=== PATIENT | male | born 1940 | race Caucasian/White ===

== ENCOUNTER 2018-01-22 12:59 | Inpatient (IN) | payer MEDICARE ==
[2018-01-22 14:08] VITALS: BP 162/80
[2018-01-22] MEDS ORDERED: Maalox 30 mL Cup PO PRN (14:17)
[2018-01-22] MEDS ORDERED: Magnesium Hydroxide (MOM) 30 mL UDC PO PRN (14:17)
[2018-01-22 15:30] LABS: % BASOPHILS 2.2 % (0.0-2.0); % EOSINOPHILS 1.6 % (0.0-5.0); % LYMPHOCYTES 28.2 % (20.0-50.0); % MONOCYTES 10.1 % (2.0-10.0); % NEUTROPHILS 57.9 % (40.0-80.0); BASOPHILE ABSOLUTE 0.2 Th/cumm (0-0.2); EOSINOPHILE ABSOLUTE 0.2 Th/cmm (0.1-0.4); HEMATOCRIT 41.1 % (41.0-60); HEMOGLOBIN 13.4 gm/dL (12-16); LYMPHOCYTE ABSOLUTE 2.7 Th/cmm (1.5-3.0); MEAN CELL VOLUME 91.1 fl (80-99); MEAN CORPUSCULAR HEMOGLOBIN 29.6 pg (27.0-31.0); MEAN CORPUSCULAR HGB CONC 32.5 pg (28.0-36.0); MEAN PLATELET VOLUME 8.7 fl; NEUTROPHILE ABSOLUTE 5.5 Th/cmm (1.8-8.0); PLATELET COUNT 270 Th/cmm (150-400); RED BLOOD COUNT 4.51 Mil/cmm (3.80-5.80); RED CELL DISTRIBUTION WIDTH 16.6 % (11.5-20.0); WHITE BLOOD COUNT 9.6 Th/cmm (4.8-10.8)
[2018-01-22 15:49] LABS: ALB/GLOB RATIO 1.4 (1.0-1.8); ALBUMIN 4.6 gm/dL (4.2-5.5); ALKALINE PHOSPHATASE 88 U/L (34-104); ANION GAP 15.8 (7.0-16.0); BILIRUBIN,TOTAL 1.1 mg/dL (0.3-1.0); BUN - UREA NITROGEN 19 mg/dL (7-25); CALCIUM SERUM 10.1 mg/dL (8.6-10.3); CARBON DIOXIDE 24.3 mEq/L (21.0-31.0); CHLORIDE 101 mEq/L (98-107); CREATININE - SERUM 1.6 mg/dL (0.7-1.3); GLUCOSE 308 mg/dL (70-105); POTASSIUM SERUM 4.1 mEq/L (3.5-5.1); SGOT 15 U/L (13-39); SGPT/ALT 21 U/L (7-52); SODIUM SERUM 137 mEq/L (136-145); TOTAL PROTEIN,SERUM 7.8 gm/dL (6.0-8.3)
[2018-01-22] MEDS ORDERED: Pneumococcal Vaccine 0.5 mL Vial IM ONE (15:50)
[2018-01-22] MEDS: INSULIN ASPART SLIDING SCALE 100 UNITS/ML UNIT SUBQ SCH ×2 (17:32→21:55)
[2018-01-22 19:14] LABS: A1C % 8.4 % (4.0-6.0)
--- NOTE | 2018-01-22 23:52 | History & Physical ---
ADMIT DATE: 01/22/2018 CHIEF COMPLAINT AND HISTORY OF PRESENT ILLNESS: The patient is a 77-year-old male with long history of insulin-dependent diabetes mellitus, hypertension, hyperlipidemia, and mild dementia, admitted to [facility] for evaluation and treatment. The patient admitted to Dr. Isaacs's service. The patient denies any chest pain, shortness of breath, nausea, vomiting, fever, or chills. PAST MEDICAL HISTORY: Significant for diabetes mellitus, insulin required; history of hyperlipidemia; hypertension; mild dementia; and psychosis. PAST SURGICAL HISTORY: No recent surgery. ALLERGIES: ALLERGY TO MORPHINE. MEDICATIONS: Follow admission reconciliation. SOCIAL HISTORY: No smoking, no alcohol, and no drug. FAMILY HISTORY: Noncontributory. REVIEW OF SYSTEMS: IMMUNO SYSTEM: No history of chronic immune disorder. CARDIOVASCULAR SYSTEM: No coronary artery disease. ENDOCRINE: He has history of diabetes mellitus, insulin-required. GASTROINTESTINAL SYSTEM: No upper or lower gastrointestinal bleed. NEUROLOGICAL: Has history of dementia. SKELETOMUSCULAR SYSTEM: No muscular dystrophy. HEMATOLOGIC: No bleeding tendencies. RESPIRATORY SYSTEM: No asthma. GENITOURINARY: No dysuria or hematuria. PHYSICAL EXAMINATION: GENERAL: He is awake, alert, and mildly confused. VITAL SIGNS: Temperature 97.6, heart rate 103, and blood pressure 156/67. HEENT: Normocephalic. Pupils are reactive to light and accommodation. Sclerae clear. NECK: Supple. Negative for lymphadenopathy, JVD, or bruit. CHEST: Bilaterally normal. No rales, rhonchi, or wheezing. HEART: S1 and S2 normal. No murmur or gallop rhythm. ABDOMEN: Soft and bowel sounds positive. EXTREMITIES: No edema. NEUROLOGIC: He is awake, alert, and mildly confused. No focal motor or sensory deficits. Cranial nerves 2-12 are intact. LABORATORY DATA: White blood cell 9.6, hemoglobin 13.4, hematocrit 41.1, and platelet 270. Sodium 137, potassium 4.1, BUN 19, creatinine 0.6, and glucose 308. ASSESSMENT: 1. Diabetes mellitus. 2. Hypertension. 3. Hyperlipidemia. 4. Dementia. 5. Psychosis. PLAN: The patient in the hospital under Dr. Isaacs's service. PROBLEMS ADDRESED DURING THIS HOSPITALIZATION: Psychosis And dementia. MEDICAL PROBLEMS ADDRESSED AT DISCHARGE: Diabetes mellitus, hyperlipidemia, and hypertension. The patient is medically stable for activity. Thank you, Dr. Isaacs, for asking me to see your patient. JOB# [id number]
[2018-01-23] MEDS ORDERED: Non-Formulary Item 1 EA (Levothyroxine Sodium [Levothyroxine Sodium] 137 MCG) PO SCH (07:30)
[2018-01-23] MEDS: INSULIN ASPART SLIDING SCALE 100 UNITS/ML UNIT SUBQ SCH ×4 (07:40→20:54)
[2018-01-23] MEDS: Pantoprazole 40 mg EC Tab PO SCH (07:41)
--- NOTE | 2018-01-23 08:05 | Diagnostic Imaging Report ---
CHEST X-RAY: AP view INDICATION: pain COMPARISON: None FINDINGS: There is evidence of prior median sternotomy. Diffuse increased interstitial lung markings are noted. No focal consolidation or effusions. Heart size is normal. Atherosclerosis is noted. Postsurgical changes of the cervical spine are partially visualized. IMPRESSION: Diffuse increased interstitial lung markings probably due to chronic lung changes. There is probable underlying COPD. Please correlate clinically. No focal consolidation identified. Atherosclerotic vascular disease. Postsurgical changes.
[2018-01-23] MEDS: NIFEdipine 30 mg ER Tab PO SCH (09:09)
[2018-01-23] MEDS: Multivitamin Tab PO SCH (09:09)
--- NOTE | 2018-01-23 13:24 | Psychosocial Evaluation ---
DATE OF SERVICE: 01/22/2018 IDENTIFYING INFORMATION: The patient is a 77-year-old male. CHIEF COMPLAINT: "I am detoxing from CODEINE." HISTORY OF PRESENT ILLNESS: The patient was transferred from [place] as patient has been using CODEINE going through withdrawal for the past few days. He said he cannot take it no more and he wants to detox. He takes 30 mg 4 times a day and he also supposed to be on methadone, but he has not been taking it lately. He said that he cannot put my through this again. He has not been detoxed before. He said developed neuropathy, lot of pain that he was hooked on CODEINE. He is very depressed, overwhelmed. He reports he has not been sleeping or eating. He reports that no auditory or visual hallucination or paranoia. PAST PSYCHIATRIC HISTORY: Reports no prior psychiatric treatment. No prior suicide attempt. He has never been hospitalized before, not on any medications. MEDICAL HISTORY: The patient is with diabetes mellitus, insulin requiring, history of hypertension, mild dementia and psychosis and neuropathy. He denies any alcohol use, but he has been abusing the [place] but he is on oxycodone. FAMILY AND SOCIAL HISTORY: The patient has been for 5 years, has 3 children. He used to work in an [employer]. He has poor hearing. He has 15 years in school. He reports no family history of psychotic disorder, suicide or substance abuse. Denies substance abuse, no abuse. MENTAL STATUS EXAMINATION: The patient is appropriately dressed, appropriately groomed. He was able to tell me the date, where he is, why he is here. He denies any auditory or visual hallucination or paranoia. He denies any intent to harm anyone. He seems to have average intelligence, is viable to give information and fund of knowledge knows the president of [employer]. Concentration is fair. Able to answer questions appropriately about self-employed and backwards. Long-term is good for age, date of . Recent memory is good. No events of him coming here, what he ate for breakfast. Immediate memory was good until he had hospitalized, on the psychiatrist in 5 minutes. His insight and judgment are questionable. IMPRESSION: AXIS I: Major depression, recurrent, severe with no psychosis or opiate dependence. MEDICAL DIAGNOSIS: As per Dr. Hairston. ASSETS: He accepts treatment, negative poor coping skills. TREATMENT PLAN: The patient is already started on Cymbalta and clonidine that will help with the detox and he takes them three times a day on a regular basis. I will be initiating for him Robaxin to help with his muscle pain. We will do group therapy, milieu therapy, and individual therapy. ESTIMATED LENGTH OF STAY: 3-7 days. DISCHARGE CRITERIA: Decreasing depression, no longer suicidal or want to harm himself and detox smoothly after discharge, outpatient treatment. JOB# [id number]
--- NOTE | 2018-01-23 16:03 | Internal Medicine Prog Note ---
Internal Medicine Subjective - Subjective Service Date: 01/23/18 Patient seen and examined:: with staff Patient is:: awake, verbal, in bed, talking Per staff patient has:: no adverse event Internal Medicine Objective - Results Result Diagrams: 01/22/18 15:00 01/22/18 15:00 Recent Labs: Laboratory Last Values WBC 9.6 Th/cmm (4.8-10.8) 01/22/18 15:00 RBC 4.51 Mil/cmm (3.80-5.80) 01/22/18 15:00 Hgb 13.4 gm/dL (12-16) 01/22/18 15:00 Hct 41.1 % (41.0-60) 01/22/18 15:00 MCV 91.1 fl (80-99) 01/22/18 15:00 MCH 29.6 pg (27.0-31.0) 01/22/18 15:00 MCHC Differential 32.5 pg (28.0-36.0) 01/22/18 15:00 RDW 16.6 % (11.5-20.0) 01/22/18 15:00 Plt Count 270 Th/cmm (150-400) 01/22/18 15:00 MPV 8.7 fl 01/22/18 15:00 Neutrophils % 57.9 % (40.0-80.0) 01/22/18 15:00 Lymphocytes % 28.2 % (20.0-50.0) 01/22/18 15:00 Monocytes % 10.1 % (2.0-10.0) H 01/22/18 15:00 Eosinophils % 1.6 % (0.0-5.0) 01/22/18 15:00 Basophils % 2.2 % (0.0-2.0) H 01/22/18 15:00 Sodium 137 mEq/L (136-145) 01/22/18 15:00 Potassium 4.1 mEq/L (3.5-5.1) 01/22/18 15:00 Chloride 101 mEq/L (98-107) 01/22/18 15:00 Carbon Dioxide 24.3 mEq/L (21.0-31.0) 01/22/18 15:00 Anion Gap 15.8 (7.0-16.0) 01/22/18 15:00 BUN 19 mg/dL (7-25) 01/22/18 15:00 Creatinine 1.6 mg/dL (0.7-1.3) H 01/22/18 15:00 Est GFR ( Amer) TNP 01/22/18 15:00 Est GFR (Non-Af Amer) TNP 01/22/18 15:00 BUN/Creatinine Ratio 11.9 01/22/18 15:00 Glucose 308 mg/dL (70-105) H 01/22/18 15:00 Hemoglobin A1c % 8.4 % (4.0-6.0) H 01/22/18 15:00 Calcium 10.1 mg/dL (8.6-10.3) 01/22/18 15:00 Total Bilirubin 1.1 mg/dL (0.3-1.0) H 01/22/18 15:00 AST 15 U/L (13-39) 01/22/18 15:00 ALT 21 U/L (7-52) 01/22/18 15:00 Alkaline Phosphatase 88 U/L (34-104) 01/22/18 15:00 Total Protein 7.8 gm/dL (6.0-8.3) 01/22/18 15:00 Albumin 4.6 gm/dL (4.2-5.5) 01/22/18 15:00 Globulin 3.2 gm/dL 01/22/18 15:00 Albumin/Globulin Ratio 1.4 (1.0-1.8) 01/22/18 15:00 - Physical Exam Vitals and I&O: Vital Signs Temp 98.0 F 01/23/18 14:00 Pulse 88 01/23/18 14:20 Resp 20 01/23/18 14:00 BP 148/64 01/23/18 14:20 Pulse Ox 97 01/23/18 14:00 Intake & Output 01/22/18 01/23/18 01/23/18 18:59 06:59 18:59 Intake Total 420 Balance 420 Weight (lbs) 104.326 kg Intake: Oral 420 Other: # Voids 1 Stool Characteristics Soft Weight Source Estimated Active Medications: Current Medications Acetaminophen (Tylenol) 650 mg PO Q4HR PRN PRN Reason: Mild Pain / Temp above 100 Stop: 07/22/18 14:16 Al Hydrox/Mg Hydrox/Simethicone (Maalox) 30 ml PO Q4HR PRN PRN Reason: GI DISTRESS Stop: 03/23/18 14:16 Atorvastatin Calcium (Lipitor) 40 mg PO DAILY [facility] Stop: 03/24/18 08:59 Last Admin: 01/23/18 09:08 Dose: 40 mg Duloxetine HCl (Cymbalta) 60 mg PO DAILY [facility] Stop: 03/24/18 08:59 Last Admin: 01/23/18 09:08 Dose: 60 mg Insulin Aspart (Novolog Insulin Sliding Scale) 0 units SUBQ ACHS [facility] PRN Reason: Protocol Stop: 03/23/18 16:29 Last Admin: 01/23/18 12:23 Dose: 10 units Insulin Detemir (Levemir Insulin) 45 units SUBQ HS [facility] Stop: 03/24/18 20:59 Levothyroxine Sodium 0.112 mg/ (Levothyroxine Sodium 0.025 mg) 0.137 mg PO QDAC [facility] Stop: 03/24/18 07:29 Last Admin: 01/23/18 07:41 Dose: Not Given Loperamide HCl (Imodium) 2 mg PO Q4HR PRN PRN Reason: Diarrhea Stop: 03/24/18 12:59 Lorazepam (Ativan) 0.5 mg PO Q4HR PRN; Protocol PRN Reason: Agitation Stop: 02/21/18 14:16 Last Admin: 01/23/18 12:24 Dose: 0.5 mg Magnesium Hydroxide (Milk Of Magnesia) 30 ml PO HS PRN PRN Reason: Constipation Methocarbamol (Robaxin) 750 mg PO BID [facility] Stop: 03/24/18 12:59 Last Admin: 01/23/18 13:19 Dose: 750 mg Multivitamins/Vitamin C (Theragran) 1 tab PO DAILY [facility] Stop: 03/24/18 08:59 Last Admin: 01/23/18 09:09 Dose: 1 tab Nifedipine (Procardia Xl) 90 mg PO DAILY [facility] Stop: 03/24/18 08:59 Last Admin: 01/23/18 09:09 Dose: 90 mg Ondansetron HCl (Zofran Odt) 4 mg PO Q6H PRN PRN Reason: Nausea / Vomiting Stop: 03/24/18 13:02 Pantoprazole Sodium (Protonix) 40 mg PO QDAC [facility] Stop: 03/24/18 07:29 Last Admin: 01/23/18 07:41 Dose: Not Given Zolpidem Tartrate (Ambien) 5 mg PO HS PRN PRN Reason: Insomnia Stop: 03/23/18 14:16 General: alert HEENT: NC/AT, PERRLA, EOMI, anicteric sclerae, throat clear Neck: Supple, No JVD, No thyromegaly, No LAD, + JVD Lungs: CTAB Cardiovascular: RRR, Normal S1, Normal S2, without murmur Abdomen: soft, non-tender, non-distended Extremities: clear Neurological: no change Internal Medicine Assmt/Plan - Assessment Assessment: 1.DM. 2.HTN 3.HYPERLIPIDEMIA. 4.DEMEDTIA. 5.PSYCHOSIS - Plan Plan: CONTINUE ON CURRENT MEDICATION AND DIET.
[2018-01-23] MEDS: Insulin Detemir 100 units/mL 10mL Vial SUBQ SCH (20:55)
[2018-01-23] MEDS ORDERED: INSULIN GLARGINE SUBQ SCH (21:00)
[2018-01-23] MEDS ORDERED: Non-Formulary Item 1 EA (Insulin Aspart Mix 70/30 [Novolog Mix 70/30] 30 UNITS) SUBQ SCH (21:00)
[2018-01-24] MEDS: Pantoprazole 40 mg EC Tab PO SCH (06:45)
[2018-01-24] MEDS: INSULIN ASPART SLIDING SCALE 100 UNITS/ML UNIT SUBQ SCH ×4 (06:46→21:18)
[2018-01-24] MEDS: NIFEdipine 30 mg ER Tab PO SCH (08:35)
[2018-01-24] MEDS: Multivitamin Tab PO SCH (08:35)
--- NOTE | 2018-01-24 17:39 | Progress Notes ---
DATE: 01/24/2018 Case was discussed with staff of the patient and reviewed records. The staff reports he has been attention seeking, medication seeking, complaining of pain. Continues to be unpredictable and impulsive. He continues to report he has severe neuropathy, need medication for pain. I explained to him that the medical doctor is taking care of that who tried to detox him from opiates. He continues to be depressed, overwhelmed, unable to sleep, unable to eat. Apparently, the patient was brought here for a hold because of danger to self because of feeling hopeless. He is very depressed, very anxious, having suicidal thoughts with plan to overdose on his medication. Unable to contract for safety, which he continues to do so, threatening suicide ____ well. He is unpredictable, impulsive, needing redirection and we will have the patient on clonidine and he is on Cymbalta 60 mg a day, which will be increasing to twice a day to help with his pain as well. He is on multiple medications to help him with his withdrawal problems. I will be adding Remeron to his medication to help with his lack of sleep, lack of appetite, lack of energy, because of poor sleep and pain. No side effects with the medications, ____ no sedation, no nausea, no extrapyramidal symptoms. We will continue to work with the patient in group therapy, milieu therapy, adjust medication as needed. JOB# [id number]
--- NOTE | 2018-01-24 19:59 | Internal Medicine Prog Note ---
Internal Medicine Subjective - Subjective Service Date: 01/24/18 Patient seen and examined:: with staff Patient is:: awake, verbal, in bed, talking Per staff patient has:: no adverse event Internal Medicine Objective - Results Result Diagrams: 01/22/18 15:00 01/22/18 15:00 Recent Labs: Laboratory Last Values WBC 9.6 Th/cmm (4.8-10.8) 01/22/18 15:00 RBC 4.51 Mil/cmm (3.80-5.80) 01/22/18 15:00 Hgb 13.4 gm/dL (12-16) 01/22/18 15:00 Hct 41.1 % (41.0-60) 01/22/18 15:00 MCV 91.1 fl (80-99) 01/22/18 15:00 MCH 29.6 pg (27.0-31.0) 01/22/18 15:00 MCHC Differential 32.5 pg (28.0-36.0) 01/22/18 15:00 RDW 16.6 % (11.5-20.0) 01/22/18 15:00 Plt Count 270 Th/cmm (150-400) 01/22/18 15:00 MPV 8.7 fl 01/22/18 15:00 Neutrophils % 57.9 % (40.0-80.0) 01/22/18 15:00 Lymphocytes % 28.2 % (20.0-50.0) 01/22/18 15:00 Monocytes % 10.1 % (2.0-10.0) H 01/22/18 15:00 Eosinophils % 1.6 % (0.0-5.0) 01/22/18 15:00 Basophils % 2.2 % (0.0-2.0) H 01/22/18 15:00 Sodium 137 mEq/L (136-145) 01/22/18 15:00 Potassium 4.1 mEq/L (3.5-5.1) 01/22/18 15:00 Chloride 101 mEq/L (98-107) 01/22/18 15:00 Carbon Dioxide 24.3 mEq/L (21.0-31.0) 01/22/18 15:00 Anion Gap 15.8 (7.0-16.0) 01/22/18 15:00 BUN 19 mg/dL (7-25) 01/22/18 15:00 Creatinine 1.6 mg/dL (0.7-1.3) H 01/22/18 15:00 Est GFR ( Amer) TNP 01/22/18 15:00 Est GFR (Non-Af Amer) TNP 01/22/18 15:00 BUN/Creatinine Ratio 11.9 01/22/18 15:00 Glucose 308 mg/dL (70-105) H 01/22/18 15:00 Hemoglobin A1c % 8.4 % (4.0-6.0) H 01/22/18 15:00 Calcium 10.1 mg/dL (8.6-10.3) 01/22/18 15:00 Total Bilirubin 1.1 mg/dL (0.3-1.0) H 01/22/18 15:00 AST 15 U/L (13-39) 01/22/18 15:00 ALT 21 U/L (7-52) 01/22/18 15:00 Alkaline Phosphatase 88 U/L (34-104) 01/22/18 15:00 Total Protein 7.8 gm/dL (6.0-8.3) 01/22/18 15:00 Albumin 4.6 gm/dL (4.2-5.5) 01/22/18 15:00 Globulin 3.2 gm/dL 01/22/18 15:00 Albumin/Globulin Ratio 1.4 (1.0-1.8) 01/22/18 15:00 - Physical Exam Vitals and I&O: Vital Signs Temp 98.0 F 01/24/18 13:00 Pulse 86 01/24/18 14:11 Resp 20 01/24/18 13:00 BP 142/64 01/24/18 14:11 Pulse Ox 99 01/24/18 13:00 Intake & Output 01/24/18 01/24/18 01/25/18 06:59 18:59 06:59 Intake Total 480 Balance 480 Intake: Oral 480 Other: # Voids 2 Stool Characteristics Soft Active Medications: Current Medications Acetaminophen (Tylenol) 650 mg PO Q4HR PRN PRN Reason: Mild Pain / Temp above 100 Stop: 03/23/18 14:16 Al Hydrox/Mg Hydrox/Simethicone (Maalox) 30 ml PO Q4HR PRN PRN Reason: GI DISTRESS Stop: 03/23/18 14:16 Atorvastatin Calcium (Lipitor) 40 mg PO DAILY [facility] Stop: 03/24/18 08:59 Last Admin: 01/24/18 08:36 Dose: 40 mg Duloxetine HCl (Cymbalta) 60 mg PO BID [facility] Stop: 03/25/18 16:59 Last Admin: 01/24/18 18:00 Dose: 60 mg Gabapentin (Neurontin) 100 mg PO BID [facility] Stop: 03/25/18 16:59 Last Admin: 01/24/18 17:29 Dose: 100 mg Insulin Aspart (Novolog Insulin Sliding Scale) 0 units SUBQ ACHS [facility] PRN Reason: Protocol Stop: 03/23/18 16:29 Last Admin: 01/24/18 17:30 Dose: 6 units Insulin Detemir (Levemir Insulin) 45 units SUBQ HS [facility] Stop: 03/24/18 20:59 Last Admin: 01/23/18 20:55 Dose: 45 units Levothyroxine Sodium 0.112 mg/ (Levothyroxine Sodium 0.025 mg) 0.137 mg PO QDAC [facility] Stop: 03/24/18 07:29 Last Admin: 01/24/18 06:45 Dose: 0.137 mg Loperamide HCl (Imodium) 2 mg PO Q4HR PRN PRN Reason: Diarrhea Stop: 03/24/18 12:59 Lorazepam (Ativan) 0.5 mg PO Q4HR PRN; Protocol PRN Reason: Agitation Stop: 02/21/18 14:16 Last Admin: 01/24/18 17:31 Dose: 0.5 mg Magnesium Hydroxide (Milk Of Magnesia) 30 ml PO HS PRN PRN Reason: Constipation Methocarbamol (Robaxin) 750 mg PO BID [facility] Stop: 03/24/18 12:59 Last Admin: 01/24/18 17:31 Dose: 750 mg Mirtazapine (Remeron) 7.5 mg PO HS [facility] PRN Reason: Protocol Stop: 03/25/18 20:59 Multivitamins/Vitamin C (Theragran) 1 tab PO DAILY [facility] Stop: 03/24/18 08:59 Last Admin: 01/24/18 08:35 Dose: 1 tab Nifedipine (Procardia Xl) 90 mg PO DAILY [facility] Stop: 03/24/18 08:59 Last Admin: 01/24/18 08:35 Dose: 90 mg Ondansetron HCl (Zofran Odt) 4 mg PO Q6H PRN PRN Reason: Nausea / Vomiting Stop: 03/24/18 13:02 Pantoprazole Sodium (Protonix) 40 mg PO QDAC [facility] Stop: 03/24/18 07:29 Last Admin: 01/24/18 06:45 Dose: 40 mg Zolpidem Tartrate (Ambien) 5 mg PO HS PRN PRN Reason: Insomnia Stop: 03/23/18 14:16 Last Admin: 01/23/18 21:16 Dose: 5 mg General: alert HEENT: NC/AT, PERRLA, EOMI, anicteric sclerae, throat clear Neck: Supple, No JVD, No thyromegaly, No LAD, + JVD Lungs: CTAB Cardiovascular: RRR, Normal S1, Normal S2, without murmur Abdomen: soft, non-tender, non-distended Extremities: clear Neurological: no change Internal Medicine Assmt/Plan - Assessment Assessment: 1.DM. 2.HTN 3.HYPERLIPIDEMIA. 4.DEMEDTIA. 5.PSYCHOSIS - Plan Plan: CONTINUE ON CURRENT MEDICATION AND DIET. Nutritional Asmnt/Malnutr-PDOC - Dietary Evaluation Malnutrition Findings (Please click <Entered> for more info): Nutritional Asmnt/Malnutrition Start: 01/24/18 16: 13 Text: Status: Complete Freq: Document 01/24/18 16:13 [facility] (Rec: 01/24/18 16:25 [id number] Nutritional Asmnt/Malnutrition Patient General Information Nutritional Screening High Risk Diagnosis psychosis Pertinent Medical Hx/Surgical Hx DM on insulin, HTn, hyperlipidemia, dementia, psychosis Subjective Information Pt seen sitting up on bed at time of visit, awake and alert . Pt stated he consumed 50% of breakfast this morning. Explained current diet, pt showed understanding. BS 308 at admission noted. Current Diet Order/ Nutrition Support AYANA, CCHO Pertinent Medications novolog, levemir, levothyroxine, remeron, theragran, protonix Pertinent Labs 01/22 Cr 1.6, glucose 308, A1c 8.4 Nutritional Hx/Data Height 1.91 m Height (Calculated Centimeters) 190.5 Current Weight (lbs) 104.326 kg Weight (Calculated Kilograms) 104.3 Weight (Calculated Grams) 116555.2 Brooks Body Weight 196 % Brooks Body Weight 117 Body Mass Index (BMI) 28.7 Weight Status Overweight GI Symptoms GI Symptoms None Last BM not indicated Difficult in: None Skin Integrity/Comment: intact Current %PO Fair (50-74%) Estimated Nutritional Goals Calories/Kcals/Kg 25-30 based on IBW 89 Kcals Calculated [id number] Protein g/k.2 Protein Calculated 89-107 Fluid: ml 2225-2670ml (1ml/kcal) Nutritional Problem 1. Problem Problem altered nutrition related lab values Etiology hx of DM Signs/Symptoms: glucose 308, A1c 8.4 Malnutrition Alert Is there a minimum of two criteria No selected? Query Text:Check all the applicable criteria. A minimum of two criteria are recommended for diagnosis of either severe or non-severe malnutrition. Malnutrition Related to Morbid Obesity Malnutrition related to morbid obesity No Intervention/Recommendation Comments 1. Continue with AYANA CCHO diet as ordered. 2. Monitor PO intake, wt, labs and skin integrity 3. F/U as moderate risk in 3-5 days, 01/27-01/29 Expected Outcomes/Goals Expected Outcomes/Goals 1. PO intake to meet at least 75% of nutritional needs. 2. Wt stability, skin to remain intact, labs to approach WNL.
[2018-01-24] MEDS: Insulin Detemir 100 units/mL 10mL Vial SUBQ SCH (21:19)
[2018-01-25] MEDS: INSULIN ASPART SLIDING SCALE 100 UNITS/ML UNIT SUBQ SCH ×4 (06:59→21:03)
[2018-01-25] MEDS: Pantoprazole 40 mg EC Tab PO SCH (07:00)
[2018-01-25] MEDS: Multivitamin Tab PO SCH (08:21)
[2018-01-25] MEDS: NIFEdipine 30 mg ER Tab PO SCH (08:22)
--- NOTE | 2018-01-25 16:37 | General Progress Note ---
Subjective - Review of Systems Service Date: 01/25/18 Subjective: awake and alert c/o neuropathy pain Objective - Results Result Diagrams: 01/22/18 15:00 01/22/18 15:00 Recent Labs: Laboratory Last Values WBC 9.6 Th/cmm (4.8-10.8) 01/22/18 15:00 RBC 4.51 Mil/cmm (3.80-5.80) 01/22/18 15:00 Hgb 13.4 gm/dL (12-16) 01/22/18 15:00 Hct 41.1 % (41.0-60) 01/22/18 15:00 MCV 91.1 fl (80-99) 01/22/18 15:00 MCH 29.6 pg (27.0-31.0) 01/22/18 15:00 MCHC Differential 32.5 pg (28.0-36.0) 01/22/18 15:00 RDW 16.6 % (11.5-20.0) 01/22/18 15:00 Plt Count 270 Th/cmm (150-400) 01/22/18 15:00 MPV 8.7 fl 01/22/18 15:00 Neutrophils % 57.9 % (40.0-80.0) 01/22/18 15:00 Lymphocytes % 28.2 % (20.0-50.0) 01/22/18 15:00 Monocytes % 10.1 % (2.0-10.0) H 01/22/18 15:00 Eosinophils % 1.6 % (0.0-5.0) 01/22/18 15:00 Basophils % 2.2 % (0.0-2.0) H 01/22/18 15:00 Sodium 137 mEq/L (136-145) 01/22/18 15:00 Potassium 4.1 mEq/L (3.5-5.1) 01/22/18 15:00 Chloride 101 mEq/L (98-107) 01/22/18 15:00 Carbon Dioxide 24.3 mEq/L (21.0-31.0) 01/22/18 15:00 Anion Gap 15.8 (7.0-16.0) 01/22/18 15:00 BUN 19 mg/dL (7-25) 01/22/18 15:00 Creatinine 1.6 mg/dL (0.7-1.3) H 01/22/18 15:00 Est GFR ( Amer) TNP 01/22/18 15:00 Est GFR (Non-Af Amer) TNP 01/22/18 15:00 BUN/Creatinine Ratio 11.9 01/22/18 15:00 Glucose 308 mg/dL (70-105) H 01/22/18 15:00 Hemoglobin A1c % 8.4 % (4.0-6.0) H 01/22/18 15:00 Calcium 10.1 mg/dL (8.6-10.3) 01/22/18 15:00 Total Bilirubin 1.1 mg/dL (0.3-1.0) H 01/22/18 15:00 AST 15 U/L (13-39) 01/22/18 15:00 ALT 21 U/L (7-52) 01/22/18 15:00 Alkaline Phosphatase 88 U/L (34-104) 01/22/18 15:00 Total Protein 7.8 gm/dL (6.0-8.3) 01/22/18 15:00 Albumin 4.6 gm/dL (4.2-5.5) 01/22/18 15:00 Globulin 3.2 gm/dL 01/22/18 15:00 Albumin/Globulin Ratio 1.4 (1.0-1.8) 01/22/18 15:00 - Physical Exam Vitals and I&O: Vital Signs Temp 98 F 01/25/18 04:24 Pulse 71 01/25/18 14:32 Resp 19 01/25/18 04:24 BP 146/69 01/25/18 14:32 Pulse Ox 97 01/25/18 04:24 Intake & Output 01/24/18 01/25/18 01/25/18 18:59 06:59 18:59 Intake Total 720 Balance 720 Intake: Oral 720 Other: # Voids 2 Active Medications: Current Medications Acetaminophen (Tylenol) 650 mg PO Q4HR PRN PRN Reason: Mild Pain / Temp above 100 Stop: 03/23/18 14:16 Last Admin: 01/25/18 14:39 Dose: 650 mg Al Hydrox/Mg Hydrox/Simethicone (Maalox) 30 ml PO Q4HR PRN PRN Reason: GI DISTRESS Stop: 03/23/18 14:16 Atorvastatin Calcium (Lipitor) 40 mg PO DAILY [facility] Stop: 03/24/18 08:59 Last Admin: 01/25/18 08:22 Dose: 40 mg Duloxetine HCl (Cymbalta) 60 mg PO BID [facility] Stop: 03/25/18 16:59 Last Admin: 01/25/18 16:25 Dose: 60 mg Gabapentin (Neurontin) 200 mg PO BID [facility] Stop: 03/26/18 16:25 Insulin Aspart (Novolog Insulin Sliding Scale) 0 units SUBQ ACHS [facility] PRN Reason: Protocol Stop: 03/23/18 16:29 Last Admin: 01/25/18 11:56 Dose: 4 units Insulin Detemir (Levemir Insulin) 45 units SUBQ HS [facility] Stop: 03/24/18 20:59 Last Admin: 01/24/18 21:19 Dose: 45 units Levothyroxine Sodium 0.112 mg/ (Levothyroxine Sodium 0.025 mg) 0.137 mg PO QDAC [facility] Stop: 03/24/18 07:29 Last Admin: 01/25/18 07:00 Dose: 0.137 mg Loperamide HCl (Imodium) 2 mg PO Q4HR PRN PRN Reason: Diarrhea Stop: 03/24/18 12:59 Lorazepam (Ativan) 0.5 mg PO Q4HR PRN; Protocol PRN Reason: Agitation Stop: 02/21/18 14:16 Last Admin: 01/25/18 14:38 Dose: 0.5 mg Magnesium Hydroxide (Milk Of Magnesia) 30 ml PO HS PRN PRN Reason: Constipation Methocarbamol (Robaxin) 750 mg PO BID [facility] Stop: 03/24/18 12:59 Last Admin: 01/25/18 16:25 Dose: 750 mg Mirtazapine (Remeron) 7.5 mg PO HS [facility] PRN Reason: Protocol Stop: 03/25/18 20:59 Last Admin: 01/24/18 20:55 Dose: 7.5 mg Multivitamins/Vitamin C (Theragran) 1 tab PO DAILY [facility] Stop: 03/24/18 08:59 Last Admin: 01/25/18 08:21 Dose: 1 tab Nifedipine (Procardia Xl) 90 mg PO DAILY [facility] Stop: 03/24/18 08:59 Last Admin: 01/25/18 08:22 Dose: 90 mg Ondansetron HCl (Zofran Odt) 4 mg PO Q6H PRN PRN Reason: Nausea / Vomiting Stop: 03/24/18 13:02 Pantoprazole Sodium (Protonix) 40 mg PO QDAC [facility] Stop: 03/24/18 07:29 Last Admin: 01/25/18 07:00 Dose: 40 mg Zolpidem Tartrate (Ambien) 5 mg PO HS PRN PRN Reason: Insomnia Stop: 03/23/18 14:16 Last Admin: 01/24/18 20:54 Dose: 5 mg General: No acute distress HEENT: PERRLA, EOMI Neck: Supple, JVD Cardiovascular: Regular rate, Normal S1, Normal S2 Lungs: Clear to auscultation Abdomen: Bowel sounds, Soft Assessment/Plan - Assessment Assessment: 1.DM. 2.HTN 3.HYPERLIPIDEMIA. 4.DEMEDTIA. 5.PSYCHOSIS 6.CHRONIC NEUROPATHY - Plan Plan: INCREASE NEURONTIN WILL CONTINUE TO MONITOR RESPONSE Nutritional Asmnt/Malnutr-PDOC - Dietary Evaluation Malnutrition Findings (Please click <Entered> for more info): Nutritional Asmnt/Malnutrition Start: 01/24/18 16: 13 Text: Status: Complete Freq: Document 01/24/18 16:13 LCLEO (Rec: 01/24/18 16:25 [email or web address] Nutritional Asmnt/Malnutrition Patient General Information Nutritional Screening High Risk Diagnosis psychosis Pertinent Medical Hx/Surgical Hx DM on insulin, HTn, hyperlipidemia, dementia, psychosis Subjective Information Pt seen sitting up on bed at time of visit, awake and alert . Pt stated he consumed 50% of breakfast this morning. Explained current diet, pt showed understanding. BS 308 at admission noted. Current Diet Order/ Nutrition Support AYANA, CCHO Pertinent Medications novolog, levemir, levothyroxine, remeron, theragran, protonix Pertinent Labs 01/22 Cr 1.6, glucose 308, A1c 8.4 Nutritional Hx/Data Height 1.91 m Height (Calculated Centimeters) 190.5 Current Weight (lbs) 104.326 kg Weight (Calculated Kilograms) 104.3 Weight (Calculated Grams) 245568.2 [place] Body Weight 196 % [place] Body Weight 117 Body Mass Index (BMI) 28.7 Weight Status Overweight GI Symptoms GI Symptoms None Last BM not indicated Difficult in: None Skin Integrity/Comment: intact Current %PO Fair (50-74%) Estimated Nutritional Goals Calories/Kcals/Kg 25-30 based on IBW 89 Kcals Calculated 3155-8760 Protein g/k.2 Protein Calculated 89-107 Fluid: ml 2225-2670ml (1ml/kcal) Nutritional Problem 1. Problem Problem altered nutrition related lab values Etiology hx of DM Signs/Symptoms: glucose 308, A1c 8.4 Malnutrition Alert Is there a minimum of two criteria No selected? Query Text:Check all the applicable criteria. A minimum of two criteria are recommended for diagnosis of either severe or non-severe malnutrition. Malnutrition Related to Morbid Obesity Malnutrition related to morbid obesity No Intervention/Recommendation Comments 1. Continue with AYANA CCHO diet as ordered. 2. Monitor PO intake, wt, labs and skin integrity 3. F/U as moderate risk in 3-5 days, 01/27-01/29 Expected Outcomes/Goals Expected Outcomes/Goals 1. PO intake to meet at least 75% of nutritional needs. 2. Wt stability, skin to remain intact, labs to approach WNL.
[2018-01-25] MEDS: Insulin Detemir 100 units/mL 10mL Vial SUBQ SCH (21:01)
--- NOTE | 2018-01-25 22:42 | Progress Notes ---
DATE: 01/25/2018 Dr. Barron covering for Dr. Isaacs. SUBJECTIVE: He is a 77-year-old male who was detoxing from codeine. He had expressed suicidal ideation, feeling a lot of distraught emotions from also severe neuropathy. During the hospital course, the patient has been observed to be still withdrawn and disengaged. CURRENT MEDICATIONS: Include Cymbalta 60 mg p.o. b.i.d., Robaxin, Remeron 7.5 mg, Procardia, Protonix, Ambien. Today on [id number] evaluation, the patient reported withdrawal symptoms were little less intense. This is the first day he started to feel a bit better. He reports that the recent increase of the Cymbalta was well tolerated without complications or side effects or diarrhea or constipation. MENTAL STATUS EXAMINATION: Still depressed, aloof, psychological turmoil, distraught with the detoxification. ASSESSMENT AND PLAN: The patient is a 77-year-old male with history of depression, history of severe neuropathy, who is tolerating the recent increase by primary psychiatrist's treatment team of the Cymbalta and gabapentin. We will continue monitoring and evaluating. JOB# [id number]
[2018-01-26] MEDS: INSULIN ASPART SLIDING SCALE 100 UNITS/ML UNIT SUBQ SCH ×4 (07:15→20:51)
[2018-01-26] MEDS: Pantoprazole 40 mg EC Tab PO SCH (07:15)
[2018-01-26] MEDS: Multivitamin Tab PO SCH (08:44)
[2018-01-26] MEDS: NIFEdipine 30 mg ER Tab PO SCH (08:45)
--- NOTE | 2018-01-26 09:24 | General Progress Note ---
Subjective - Review of Systems Service Date: 01/26/18 Subjective: awake and alert improved pain Objective - Results Result Diagrams: 01/22/18 15:00 01/22/18 15:00 Recent Labs: Laboratory Last Values WBC 9.6 Th/cmm (4.8-10.8) 01/22/18 15:00 RBC 4.51 Mil/cmm (3.80-5.80) 01/22/18 15:00 Hgb 13.4 gm/dL (12-16) 01/22/18 15:00 Hct 41.1 % (41.0-60) 01/22/18 15:00 MCV 91.1 fl (80-99) 01/22/18 15:00 MCH 29.6 pg (27.0-31.0) 01/22/18 15:00 MCHC Differential 32.5 pg (28.0-36.0) 01/22/18 15:00 RDW 16.6 % (11.5-20.0) 01/22/18 15:00 Plt Count 270 Th/cmm (150-400) 01/22/18 15:00 MPV 8.7 fl 01/22/18 15:00 Neutrophils % 57.9 % (40.0-80.0) 01/22/18 15:00 Lymphocytes % 28.2 % (20.0-50.0) 01/22/18 15:00 Monocytes % 10.1 % (2.0-10.0) H 01/22/18 15:00 Eosinophils % 1.6 % (0.0-5.0) 01/22/18 15:00 Basophils % 2.2 % (0.0-2.0) H 01/22/18 15:00 Sodium 137 mEq/L (136-145) 01/22/18 15:00 Potassium 4.1 mEq/L (3.5-5.1) 01/22/18 15:00 Chloride 101 mEq/L (98-107) 01/22/18 15:00 Carbon Dioxide 24.3 mEq/L (21.0-31.0) 01/22/18 15:00 Anion Gap 15.8 (7.0-16.0) 01/22/18 15:00 BUN 19 mg/dL (7-25) 01/22/18 15:00 Creatinine 1.6 mg/dL (0.7-1.3) H 01/22/18 15:00 Est GFR ( Amer) TNP 01/22/18 15:00 Est GFR (Non-Af Amer) TNP 01/22/18 15:00 BUN/Creatinine Ratio 11.9 01/22/18 15:00 Glucose 308 mg/dL (70-105) H 01/22/18 15:00 POC Glucose 243 MG/DL (70 - 105) H 01/26/18 07:05 Hemoglobin A1c % 8.4 % (4.0-6.0) H 01/22/18 15:00 Calcium 10.1 mg/dL (8.6-10.3) 01/22/18 15:00 Total Bilirubin 1.1 mg/dL (0.3-1.0) H 01/22/18 15:00 AST 15 U/L (13-39) 01/22/18 15:00 ALT 21 U/L (7-52) 01/22/18 15:00 Alkaline Phosphatase 88 U/L (34-104) 01/22/18 15:00 Total Protein 7.8 gm/dL (6.0-8.3) 01/22/18 15:00 Albumin 4.6 gm/dL (4.2-5.5) 01/22/18 15:00 Globulin 3.2 gm/dL 01/22/18 15:00 Albumin/Globulin Ratio 1.4 (1.0-1.8) 01/22/18 15:00 - Physical Exam Vitals and I&O: Vital Signs Temp 98.0 F 01/25/18 18:17 Pulse 73 01/26/18 08:45 Resp 18 01/25/18 18:17 BP 140/81 01/26/18 08:45 Pulse Ox 96 01/25/18 18:17 Intake & Output 01/25/18 01/26/18 01/26/18 18:59 06:59 18:59 Intake Total 1250 Balance 1250 Intake: Oral 1250 Other: # Voids 3 # Bowel Movements 1 Active Medications: Current Medications Acetaminophen (Tylenol) 650 mg PO Q4HR PRN PRN Reason: Mild Pain / Temp above 100 Stop: 03/23/18 14:16 Last Admin: 01/25/18 14:39 Dose: 650 mg Al Hydrox/Mg Hydrox/Simethicone (Maalox) 30 ml PO Q4HR PRN PRN Reason: GI DISTRESS Stop: 03/23/18 14:16 Atorvastatin Calcium (Lipitor) 40 mg PO DAILY [facility] Stop: 03/24/18 08:59 Last Admin: 01/26/18 08:45 Dose: 40 mg Duloxetine HCl (Cymbalta) 60 mg PO BID [facility] Stop: 03/25/18 16:59 Last Admin: 01/26/18 08:45 Dose: 60 mg Gabapentin (Neurontin) 200 mg PO BID [facility] Stop: 03/26/18 16:25 Last Admin: 01/26/18 08:42 Dose: 200 mg Insulin Aspart (Novolog Insulin Sliding Scale) 0 units SUBQ ACHS [facility] PRN Reason: Protocol Stop: 03/23/18 16:29 Last Admin: 01/26/18 07:15 Dose: 4 units Insulin Detemir (Levemir Insulin) 45 units SUBQ HS [facility] Stop: 03/24/18 20:59 Last Admin: 01/25/18 21:01 Dose: 45 units Levothyroxine Sodium 0.112 mg/ (Levothyroxine Sodium 0.025 mg) 0.137 mg PO QDAC [facility] Stop: 03/24/18 07:29 Last Admin: 01/26/18 07:12 Dose: 0.137 mg Loperamide HCl (Imodium) 2 mg PO Q4HR PRN PRN Reason: Diarrhea Stop: 03/24/18 12:59 Lorazepam (Ativan) 0.5 mg PO Q4HR PRN; Protocol PRN Reason: Agitation Stop: 02/21/18 14:16 Last Admin: 01/25/18 14:38 Dose: 0.5 mg Magnesium Hydroxide (Milk Of Magnesia) 30 ml PO HS PRN PRN Reason: Constipation Methocarbamol (Robaxin) 750 mg PO BID [facility] Stop: 03/24/18 12:59 Last Admin: 01/26/18 08:44 Dose: 750 mg Mirtazapine (Remeron) 7.5 mg PO HS [facility] PRN Reason: Protocol Stop: 03/25/18 20:59 Last Admin: 01/25/18 20:58 Dose: 7.5 mg Multivitamins/Vitamin C (Theragran) 1 tab PO DAILY [facility] Stop: 03/24/18 08:59 Last Admin: 01/26/18 08:44 Dose: 1 tab Nifedipine (Procardia Xl) 90 mg PO DAILY [facility] Stop: 03/24/18 08:59 Last Admin: 01/26/18 08:45 Dose: 90 mg Ondansetron HCl (Zofran Odt) 4 mg PO Q6H PRN PRN Reason: Nausea / Vomiting Stop: 03/24/18 13:02 Pantoprazole Sodium (Protonix) 40 mg PO QDAC [facility] Stop: 03/24/18 07:29 Last Admin: 01/26/18 07:15 Dose: 40 mg Zolpidem Tartrate (Ambien) 5 mg PO HS PRN PRN Reason: Insomnia Stop: 03/23/18 14:16 Last Admin: 01/25/18 20:58 Dose: 5 mg General: No acute distress HEENT: PERRLA, EOMI Neck: Supple, JVD Cardiovascular: Regular rate, Normal S1, Normal S2 Lungs: Clear to auscultation Abdomen: Bowel sounds, Soft Assessment/Plan - Assessment Assessment: 1.DM. 2.HTN 3.HYPERLIPIDEMIA. 4.DEMEDTIA. 5.PSYCHOSIS 6.CHRONIC NEUROPATHY - Plan Plan: cont current treatment Nutritional Asmnt/Malnutr-PDOC - Dietary Evaluation Malnutrition Findings (Please click <Entered> for more info): Nutritional Asmnt/Malnutrition Start: 01/24/18 16: 13 Text: Status: Complete Freq: Document 01/24/18 16:13 HEN (Rec: 01/24/18 16:25 HENG [email or web address]) Nutritional Asmnt/Malnutrition Patient General Information Nutritional Screening High Risk Diagnosis psychosis Pertinent Medical Hx/Surgical Hx DM on insulin, HTn, hyperlipidemia, dementia, psychosis Subjective Information Pt seen sitting up on bed at time of visit, awake and alert . Pt stated he consumed 50% of breakfast this morning. Explained current diet, pt showed understanding. BS 308 at admission noted. Current Diet Order/ Nutrition Support AYANA, CCHO Pertinent Medications novolog, levemir, levothyroxine, remeron, theragran, protonix Pertinent Labs 01/22 Cr 1.6, glucose 308, A1c 8.4 Nutritional Hx/Data Height 1.91 m Height (Calculated Centimeters) 190.5 Current Weight (lbs) 104.326 kg Weight (Calculated Kilograms) 104.3 Weight (Calculated Grams) 612371.2 [place] Body Weight 196 % [place] Body Weight 117 Body Mass Index (BMI) 28.7 Weight Status Overweight GI Symptoms GI Symptoms None Last BM not indicated Difficult in: None Skin Integrity/Comment: intact Current %PO Fair (50-74%) Estimated Nutritional Goals Calories/Kcals/Kg 25-30 based on IBW 89 Kcals Calculated 8347-7505 Protein g/k.2 Protein Calculated 89-107 Fluid: ml 2225-2670ml (1ml/kcal) Nutritional Problem 1. Problem Problem altered nutrition related lab values Etiology hx of DM Signs/Symptoms: glucose 308, A1c 8.4 Malnutrition Alert Is there a minimum of two criteria No selected? Query Text:Check all the applicable criteria. A minimum of two criteria are recommended for diagnosis of either severe or non-severe malnutrition. Malnutrition Related to Morbid Obesity Malnutrition related to morbid obesity No Intervention/Recommendation Comments 1. Continue with AYANA CCHO diet as ordered. 2. Monitor PO intake, wt, labs and skin integrity 3. F/U as moderate risk in 3-5 days, 01/27-01/29 Expected Outcomes/Goals Expected Outcomes/Goals 1. PO intake to meet at least 75% of nutritional needs. 2. Wt stability, skin to remain intact, labs to approach WNL.
[2018-01-26] MEDS: Insulin Detemir 100 units/mL 10mL Vial SUBQ SCH (20:50)
--- NOTE | 2018-01-26 20:59 | Progress Notes ---
DATE: SUBJECTIVE: The patient was seen and evaluated. The patient's chart reviewed. Today on [id number] evaluation, the patient reports that her neuropathy feels very intense, detoxing from opiates are less intense, very distraught. MENTAL STATUS EXAMINATION: Distraught, aloof, psychological turmoil, distraught with his detoxification. ASSESSMENT AND PLAN: This is a 77-year-old male with history of depression, severe neuropathy, tolerating the detox process, and recent increase of Cymbalta and gabapentin without complications or side effects of medications. We will continue monitoring and evaluate, the patient still has active symptoms. He is unable to formulate safe plan. [facility]# [id number]
[2018-01-27] MEDS: Pantoprazole 40 mg EC Tab PO SCH (06:43)
[2018-01-27] MEDS: INSULIN ASPART SLIDING SCALE 100 UNITS/ML UNIT SUBQ SCH ×3 (06:53→21:08)
[2018-01-27] MEDS: Multivitamin Tab PO SCH (08:50)
[2018-01-27] MEDS: NIFEdipine 30 mg ER Tab PO SCH (08:52)
--- NOTE | 2018-01-27 14:55 | General Progress Note ---
Subjective - Review of Systems Service Date: 01/27/18 Subjective: awake and alert improved pain Objective - Results Result Diagrams: 01/22/18 15:00 01/22/18 15:00 Recent Labs: Laboratory Last Values WBC 9.6 Th/cmm (4.8-10.8) 01/22/18 15:00 RBC 4.51 Mil/cmm (3.80-5.80) 01/22/18 15:00 Hgb 13.4 gm/dL (12-16) 01/22/18 15:00 Hct 41.1 % (41.0-60) 01/22/18 15:00 MCV 91.1 fl (80-99) 01/22/18 15:00 MCH 29.6 pg (27.0-31.0) 01/22/18 15:00 MCHC Differential 32.5 pg (28.0-36.0) 01/22/18 15:00 RDW 16.6 % (11.5-20.0) 01/22/18 15:00 Plt Count 270 Th/cmm (150-400) 01/22/18 15:00 MPV 8.7 fl 01/22/18 15:00 Neutrophils % 57.9 % (40.0-80.0) 01/22/18 15:00 Lymphocytes % 28.2 % (20.0-50.0) 01/22/18 15:00 Monocytes % 10.1 % (2.0-10.0) H 01/22/18 15:00 Eosinophils % 1.6 % (0.0-5.0) 01/22/18 15:00 Basophils % 2.2 % (0.0-2.0) H 01/22/18 15:00 Sodium 137 mEq/L (136-145) 01/22/18 15:00 Potassium 4.1 mEq/L (3.5-5.1) 01/22/18 15:00 Chloride 101 mEq/L (98-107) 01/22/18 15:00 Carbon Dioxide 24.3 mEq/L (21.0-31.0) 01/22/18 15:00 Anion Gap 15.8 (7.0-16.0) 01/22/18 15:00 BUN 19 mg/dL (7-25) 01/22/18 15:00 Creatinine 1.6 mg/dL (0.7-1.3) H 01/22/18 15:00 Est GFR ( Amer) TNP 01/22/18 15:00 Est GFR (Non-Af Amer) TNP 01/22/18 15:00 BUN/Creatinine Ratio 11.9 01/22/18 15:00 Glucose 308 mg/dL (70-105) H 01/22/18 15:00 POC Glucose 293 MG/DL (70 - 105) H 01/27/18 11:31 Hemoglobin A1c % 8.4 % (4.0-6.0) H 01/22/18 15:00 Calcium 10.1 mg/dL (8.6-10.3) 01/22/18 15:00 Total Bilirubin 1.1 mg/dL (0.3-1.0) H 01/22/18 15:00 AST 15 U/L (13-39) 01/22/18 15:00 ALT 21 U/L (7-52) 01/22/18 15:00 Alkaline Phosphatase 88 U/L (34-104) 01/22/18 15:00 Total Protein 7.8 gm/dL (6.0-8.3) 01/22/18 15:00 Albumin 4.6 gm/dL (4.2-5.5) 01/22/18 15:00 Globulin 3.2 gm/dL 01/22/18 15:00 Albumin/Globulin Ratio 1.4 (1.0-1.8) 01/22/18 15:00 - Physical Exam Vitals and I&O: Vital Signs Temp 97.3 F 01/27/18 05:58 Pulse 70 01/27/18 08:52 Resp 20 01/27/18 05:58 BP 157/67 01/27/18 08:52 Pulse Ox 98 01/26/18 20:46 Intake & Output 01/26/18 01/27/18 01/27/18 18:59 06:59 18:59 Intake Total 480 Balance 480 Intake: Oral 480 Other: # Voids 2 Active Medications: Current Medications Acetaminophen (Tylenol) 650 mg PO Q4HR PRN PRN Reason: Mild Pain / Temp above 100 Stop: 03/23/18 14:16 Last Admin: 01/26/18 14:51 Dose: 650 mg Al Hydrox/Mg Hydrox/Simethicone (Maalox) 30 ml PO Q4HR PRN PRN Reason: GI DISTRESS Stop: 03/23/18 14:16 Atorvastatin Calcium (Lipitor) 40 mg PO DAILY [facility] Stop: 03/24/18 08:59 Last Admin: 01/27/18 08:51 Dose: 40 mg Duloxetine HCl (Cymbalta) 60 mg PO BID [facility] Stop: 03/25/18 16:59 Last Admin: 01/27/18 08:52 Dose: 60 mg Gabapentin (Neurontin) 200 mg PO TID [facility] Stop: 03/28/18 20:59 Insulin Aspart (Novolog Insulin Sliding Scale) 0 units SUBQ ACHS [facility] PRN Reason: Protocol Stop: 03/23/18 16:29 Last Admin: 01/27/18 06:53 Dose: Not Given Insulin Detemir (Levemir Insulin) 45 units SUBQ HS [facility] Stop: 03/24/18 20:59 Last Admin: 01/26/18 20:50 Dose: 45 units Levothyroxine Sodium 0.112 mg/ (Levothyroxine Sodium 0.025 mg) 0.137 mg PO QDAC [facility] Stop: 03/24/18 07:29 Last Admin: 01/27/18 06:45 Dose: 0.137 mg Loperamide HCl (Imodium) 2 mg PO Q4HR PRN PRN Reason: Diarrhea Stop: 03/24/18 12:59 Lorazepam (Ativan) 0.5 mg PO Q4HR PRN; Protocol PRN Reason: Agitation Stop: 02/21/18 14:16 Last Admin: 01/26/18 20:52 Dose: 0.5 mg Magnesium Hydroxide (Milk Of Magnesia) 30 ml PO HS PRN PRN Reason: Constipation Methocarbamol (Robaxin) 750 mg PO BID [facility] Stop: 03/24/18 12:59 Last Admin: 01/27/18 08:51 Dose: 750 mg Mirtazapine (Remeron) 7.5 mg PO HS [facility] PRN Reason: Protocol Stop: 03/25/18 20:59 Last Admin: 01/26/18 20:52 Dose: 7.5 mg Multivitamins/Vitamin C (Theragran) 1 tab PO DAILY [facility] Stop: 03/24/18 08:59 Last Admin: 01/27/18 08:50 Dose: 1 tab Nifedipine (Procardia Xl) 90 mg PO DAILY [facility] Stop: 03/24/18 08:59 Last Admin: 01/27/18 08:52 Dose: 90 mg Ondansetron HCl (Zofran Odt) 4 mg PO Q6H PRN PRN Reason: Nausea / Vomiting Stop: 03/24/18 13:02 Pantoprazole Sodium (Protonix) 40 mg PO QDAC [facility] Stop: 03/24/18 07:29 Last Admin: 01/27/18 06:43 Dose: 40 mg Zolpidem Tartrate (Ambien) 5 mg PO HS PRN PRN Reason: Insomnia Stop: 03/23/18 14:16 Last Admin: 01/26/18 20:52 Dose: 5 mg General: No acute distress HEENT: PERRLA, EOMI Neck: Supple, JVD Cardiovascular: Regular rate, Normal S1, Normal S2 Lungs: Clear to auscultation Abdomen: Bowel sounds, Soft Assessment/Plan - Assessment Assessment: 1.DM. 2.HTN 3.HYPERLIPIDEMIA. 4.DEMEDTIA. 5.PSYCHOSIS 6.CHRONIC NEUROPATHY - Plan Plan: cont current treatment increase neurontin Nutritional Asmnt/Malnutr-PDOC - Dietary Evaluation Malnutrition Findings (Please click <Entered> for more info): Nutritional Asmnt/Malnutrition Start: 01/24/18 16: 13 Text: Status: Complete Freq: Document 01/24/18 16:13 HEN (Rec: 01/24/18 16:25 LCHENG [email or web address]) Nutritional Asmnt/Malnutrition Patient General Information Nutritional Screening High Risk Diagnosis psychosis Pertinent Medical Hx/Surgical Hx DM on insulin, HTn, hyperlipidemia, dementia, psychosis Subjective Information Pt seen sitting up on bed at time of visit, awake and alert . Pt stated he consumed 50% of breakfast this morning. Explained current diet, pt showed understanding. BS 308 at admission noted. Current Diet Order/ Nutrition Support AYANA, CCHO Pertinent Medications novolog, levemir, levothyroxine, remeron, theragran, protonix Pertinent Labs 01/22 Cr 1.6, glucose 308, A1c 8.4 Nutritional Hx/Data Height 1.91 m Height (Calculated Centimeters) 190.5 Current Weight (lbs) 104.326 kg Weight (Calculated Kilograms) 104.3 Weight (Calculated Grams) 482011.2 [place] Body Weight 196 % [place] Body Weight 117 Body Mass Index (BMI) 28.7 Weight Status Overweight GI Symptoms GI Symptoms None Last BM not indicated Difficult in: None Skin Integrity/Comment: intact Current %PO Fair (50-74%) Estimated Nutritional Goals Calories/Kcals/Kg 25-30 based on IBW 89 Kcals Calculated 3434-5128 Protein g/k.2 Protein Calculated 89-107 Fluid: ml 2225-2670ml (1ml/kcal) Nutritional Problem 1. Problem Problem altered nutrition related lab values Etiology hx of DM Signs/Symptoms: glucose 308, A1c 8.4 Malnutrition Alert Is there a minimum of two criteria No selected? Query Text:Check all the applicable criteria. A minimum of two criteria are recommended for diagnosis of either severe or non-severe malnutrition. Malnutrition Related to Morbid Obesity Malnutrition related to morbid obesity No Intervention/Recommendation Comments 1. Continue with AYANA CCHO diet as ordered. 2. Monitor PO intake, wt, labs and skin integrity 3. F/U as moderate risk in 3-5 days, 01/27-01/29 Expected Outcomes/Goals Expected Outcomes/Goals 1. PO intake to meet at least 75% of nutritional needs. 2. Wt stability, skin to remain intact, labs to approach WNL.
[2018-01-27] MEDS: Insulin Detemir 100 units/mL 10mL Vial SUBQ SCH (21:06)
--- NOTE | 2018-01-27 22:27 | Progress Notes ---
DATE: 01/27/[address] Helton. The patient was seen and evaluated. The patient's chart reviewed. Today on [id number] evaluation, the patient reports that his neuropathy continues to feel a little bit less intense compared to yesterday and the detox are less. MENTAL STATUS EXAMINATION: Distraught, aloof, overwhelmed. ASSESSMENT AND PLAN: This is a 77-year-old male with a history of depression who is tolerating the detox and tolerated the recent increase in Cymbalta to 120 mg and the gabapentin to target the patient's severe neuropathy that exacerbates the patient's negative mood. JOB# [id number]
[2018-01-28] MEDS: Pantoprazole 40 mg EC Tab PO SCH (06:38)
[2018-01-28] MEDS: INSULIN ASPART SLIDING SCALE 100 UNITS/ML UNIT SUBQ SCH ×5 (06:40→21:22)
[2018-01-28] MEDS: NIFEdipine 30 mg ER Tab PO SCH (08:30)
[2018-01-28] MEDS: Multivitamin Tab PO SCH (08:31)
--- NOTE | 2018-01-28 11:51 | Internal Medicine Prog Note ---
Internal Medicine Subjective - Subjective Service Date: 01/28/18 Patient seen and examined:: with staff (his blood suger still high.) Patient is:: awake, verbal, in bed, talking Per staff patient has:: no adverse event Internal Medicine Objective - Results Result Diagrams: 01/22/18 15:00 01/22/18 15:00 Recent Labs: Laboratory Last Values WBC 9.6 Th/cmm (4.8-10.8) 01/22/18 15:00 RBC 4.51 Mil/cmm (3.80-5.80) 01/22/18 15:00 Hgb 13.4 gm/dL (12-16) 01/22/18 15:00 Hct 41.1 % (41.0-60) 01/22/18 15:00 MCV 91.1 fl (80-99) 01/22/18 15:00 MCH 29.6 pg (27.0-31.0) 01/22/18 15:00 MCHC Differential 32.5 pg (28.0-36.0) 01/22/18 15:00 RDW 16.6 % (11.5-20.0) 01/22/18 15:00 Plt Count 270 Th/cmm (150-400) 01/22/18 15:00 MPV 8.7 fl 01/22/18 15:00 Neutrophils % 57.9 % (40.0-80.0) 01/22/18 15:00 Lymphocytes % 28.2 % (20.0-50.0) 01/22/18 15:00 Monocytes % 10.1 % (2.0-10.0) H 01/22/18 15:00 Eosinophils % 1.6 % (0.0-5.0) 01/22/18 15:00 Basophils % 2.2 % (0.0-2.0) H 01/22/18 15:00 Sodium 137 mEq/L (136-145) 01/22/18 15:00 Potassium 4.1 mEq/L (3.5-5.1) 01/22/18 15:00 Chloride 101 mEq/L (98-107) 01/22/18 15:00 Carbon Dioxide 24.3 mEq/L (21.0-31.0) 01/22/18 15:00 Anion Gap 15.8 (7.0-16.0) 01/22/18 15:00 BUN 19 mg/dL (7-25) 01/22/18 15:00 Creatinine 1.6 mg/dL (0.7-1.3) H 01/22/18 15:00 Est GFR ( Amer) TNP 01/22/18 15:00 Est GFR (Non-Af Amer) TNP 01/22/18 15:00 BUN/Creatinine Ratio 11.9 01/22/18 15:00 Glucose 308 mg/dL (70-105) H 01/22/18 15:00 POC Glucose 322 MG/DL (70 - 105) H 01/28/18 11:44 Hemoglobin A1c % 8.4 % (4.0-6.0) H 01/22/18 15:00 Calcium 10.1 mg/dL (8.6-10.3) 01/22/18 15:00 Total Bilirubin 1.1 mg/dL (0.3-1.0) H 01/22/18 15:00 AST 15 U/L (13-39) 01/22/18 15:00 ALT 21 U/L (7-52) 01/22/18 15:00 Alkaline Phosphatase 88 U/L (34-104) 01/22/18 15:00 Total Protein 7.8 gm/dL (6.0-8.3) 01/22/18 15:00 Albumin 4.6 gm/dL (4.2-5.5) 01/22/18 15:00 Globulin 3.2 gm/dL 01/22/18 15:00 Albumin/Globulin Ratio 1.4 (1.0-1.8) 01/22/18 15:00 - Physical Exam Vitals and I&O: Vital Signs Temp 99.0 F 01/28/18 06:37 Pulse 79 01/28/18 08:30 Resp 18 01/28/18 06:37 BP 191/76 01/28/18 08:30 Pulse Ox 100 01/28/18 06:37 Intake & Output 01/27/18 01/28/18 01/28/18 18:59 06:59 18:59 Intake Total 940 480 Balance 940 480 Intake: Oral 940 480 Other: # Voids 2 2 Active Medications: Current Medications Acetaminophen (Tylenol) 650 mg PO Q4HR PRN PRN Reason: Mild Pain / Temp above 100 Stop: 03/23/18 14:16 Last Admin: 01/26/18 14:51 Dose: 650 mg Al Hydrox/Mg Hydrox/Simethicone (Maalox) 30 ml PO Q4HR PRN PRN Reason: GI DISTRESS Stop: 03/23/18 14:16 Atorvastatin Calcium (Lipitor) 40 mg PO DAILY [facility] Stop: 03/24/18 08:59 Last Admin: 01/28/18 08:30 Dose: 40 mg Duloxetine HCl (Cymbalta) 60 mg PO BID [facility] Stop: 03/25/18 16:59 Last Admin: 01/28/18 08:30 Dose: 60 mg Gabapentin (Neurontin) 200 mg PO TID [facility] Stop: 03/28/18 20:59 Last Admin: 01/28/18 08:31 Dose: 200 mg Insulin Aspart (Novolog Insulin Sliding Scale) 0 units SUBQ ACHS [facility] PRN Reason: Protocol Stop: 03/23/18 16:29 Last Admin: 01/28/18 08:32 Dose: Not Given Insulin Detemir (Levemir Insulin) 45 units SUBQ HS [facility] Stop: 03/24/18 20:59 Last Admin: 01/27/18 21:06 Dose: 45 units Insulin Detemir (Levemir Insulin) 20 units SUBQ DAILY [facility] PRN Reason: Protocol Stop: 03/30/18 08:59 Levothyroxine Sodium 0.112 mg/ (Levothyroxine Sodium 0.025 mg) 0.137 mg PO QDAC [facility] Stop: 03/24/18 07:29 Last Admin: 01/28/18 06:39 Dose: 0.137 mg Loperamide HCl (Imodium) 2 mg PO Q4HR PRN PRN Reason: Diarrhea Stop: 03/24/18 12:59 Lorazepam (Ativan) 0.5 mg PO Q4HR PRN; Protocol PRN Reason: Agitation Stop: 02/21/18 14:16 Last Admin: 01/26/18 20:52 Dose: 0.5 mg Magnesium Hydroxide (Milk Of Magnesia) 30 ml PO HS PRN PRN Reason: Constipation Methocarbamol (Robaxin) 750 mg PO BID [facility] Stop: 03/24/18 12:59 Last Admin: 01/28/18 08:31 Dose: 750 mg Mirtazapine (Remeron) 7.5 mg PO HS [facility] PRN Reason: Protocol Stop: 03/25/18 20:59 Last Admin: 01/27/18 21:05 Dose: 7.5 mg Multivitamins/Vitamin C (Theragran) 1 tab PO DAILY [facility] Stop: 03/24/18 08:59 Last Admin: 01/28/18 08:31 Dose: 1 tab Nifedipine (Procardia Xl) 90 mg PO DAILY [facility] Stop: 03/24/18 08:59 Last Admin: 01/28/18 08:30 Dose: 90 mg Ondansetron HCl (Zofran Odt) 4 mg PO Q6H PRN PRN Reason: Nausea / Vomiting Stop: 03/24/18 13:02 Pantoprazole Sodium (Protonix) 40 mg PO QDAC [facility] Stop: 03/24/18 07:29 Last Admin: 01/28/18 06:38 Dose: 40 mg Zolpidem Tartrate (Ambien) 5 mg PO HS PRN PRN Reason: Insomnia Stop: 03/23/18 14:16 Last Admin: 01/27/18 21:06 Dose: 5 mg General: alert HEENT: NC/AT, PERRLA, EOMI, anicteric sclerae, throat clear Neck: Supple, No JVD, No thyromegaly, No LAD, + JVD Lungs: CTAB Cardiovascular: RRR, Normal S1, Normal S2, without murmur Abdomen: soft, non-tender, non-distended Extremities: clear Neurological: no change Internal Medicine Assmt/Plan - Assessment Assessment: 1.DM. 2.HTN 3.HYPERLIPIDEMIA. 4.DEMEDTIA. 5.PSYCHOSIS - Plan Plan: CONTINUE ON CURRENT MEDICATION AND DIET.ADD 20 U LEVEMIR IN AM. Nutritional Asmnt/Malnutr-PDOC - Dietary Evaluation Malnutrition Findings (Please click <Entered> for more info): Nutritional Asmnt/Malnutrition Start: 01/24/18 16: 13 Text: Status: Complete Freq: Document 01/24/18 16:13 LCHENG (Rec: 01/24/18 16:25 LEOG [email or web address]) Nutritional Asmnt/Malnutrition Patient General Information Nutritional Screening High Risk Diagnosis psychosis Pertinent Medical Hx/Surgical Hx DM on insulin, HTn, hyperlipidemia, dementia, psychosis Subjective Information Pt seen sitting up on bed at time of visit, awake and alert . Pt stated he consumed 50% of breakfast this morning. Explained current diet, pt showed understanding. BS 308 at admission noted. Current Diet Order/ Nutrition Support [facility], [facility] Pertinent Medications novolog, levemir, levothyroxine, remeron, theragran, protonix Pertinent Labs 01/22 Cr 1.6, glucose 308, A1c 8.4 Nutritional Hx/Data Height 1.91 m Height (Calculated Centimeters) 190.5 Current Weight (lbs) 104.326 kg Weight (Calculated Kilograms) 104.3 Weight (Calculated Grams) 580007.2 [place] Body Weight 196 % [place] Body Weight 117 Body Mass Index (BMI) 28.7 Weight Status Overweight GI Symptoms GI Symptoms None Last BM not indicated Difficult in: None Skin Integrity/Comment: intact Current %PO Fair (50-74%) Estimated Nutritional Goals Calories/Kcals/Kg 25-30 based on IBW 89 Kcals Calculated 9463-6820 Protein g/k.2 Protein Calculated 89-107 Fluid: ml 2225-2670ml (1ml/kcal) Nutritional Problem 1. Problem Problem altered nutrition related lab values Etiology hx of DM Signs/Symptoms: glucose 308, A1c 8.4 Malnutrition Alert Is there a minimum of two criteria No selected? Query Text:Check all the applicable criteria. A minimum of two criteria are recommended for diagnosis of either severe or non-severe malnutrition. Malnutrition Related to Morbid Obesity Malnutrition related to morbid obesity No Intervention/Recommendation Comments 1. Continue with [facility] diet as ordered. 2. Monitor PO intake, wt, labs and skin integrity 3. F/U as moderate risk in 3-5 days, 01/27-01/29 Expected Outcomes/Goals Expected Outcomes/Goals 1. PO intake to meet at least 75% of nutritional needs. 2. Wt stability, skin to remain intact, labs to approach WNL.
--- NOTE | 2018-01-28 17:27 | Progress Notes ---
DATE: 01/28/2018 Case was discussed with staff of the patient and reviewed records. The patient continues to be in detox, continues to be ____, feeling overwhelmed, continues to be depressed, continues to be unpredictable, impulsive, continues to have multiple somatic complaints especially with the neuropathy and the pain. I did increase his Cymbalta to 60 mg twice a day and his Neurontin was increased to 200 mg 3 times a day to help with the pain and he is on detox protocol from the opiates. He is also on Remeron 7.5 mg at bedtime with no side effects, no sedation, no nausea. Continues to be overwhelmed and he has a high blood sugar at 147. ____ his blood sugar is higher at 322 for which I will be consulting the medical doctor. We will continue the patient in group therapy, milieu therapy, and adjust medication as needed. JOB# [id number]
[2018-01-28] MEDS: Insulin Detemir 100 units/mL 10mL Vial SUBQ SCH (21:23)
[2018-01-29] MEDS: INSULIN ASPART SLIDING SCALE 100 UNITS/ML UNIT SUBQ SCH ×4 (06:46→20:49)
[2018-01-29] MEDS: Pantoprazole 40 mg EC Tab PO SCH (06:47)
[2018-01-29] MEDS: Multivitamin Tab PO SCH (08:21)
[2018-01-29] MEDS: NIFEdipine 30 mg ER Tab PO SCH (08:29)
[2018-01-29] MEDS: Insulin Detemir 100 units/mL 10mL Vial SUBQ SCH ×2 (08:44→21:10)
--- NOTE | 2018-01-29 14:40 | Progress Notes ---
DATE: 01/29/2018 Case was discussed with staff of the patient, reviewed records. The patient believes that he has done over the withdrawal. However, the pain is still too hard on him. He is not sleeping well because of the pain. He is able to eat a little better. His is very supportive and has been coming to see him often. ____ increased the Neurontin to 200 mg 3 times a day. I will be increasing the dose to 300 mg 3 times a day to help with his pain. He reports that he is no longer feeling any withdrawal problems and no side effects with the medication, no sedation, no nausea and I did increase his Cymbalta a few days ago to 60 mg twice a day and will continue the patient with group therapy and milieu therapy, and adjust medications as needed. JOB# [id number]
--- NOTE | 2018-01-29 23:11 | Internal Medicine Prog Note ---
Internal Medicine Subjective - Subjective Service Date: 01/29/18 Patient seen and examined:: with staff Patient is:: awake, verbal, in bed, talking Per staff patient has:: no adverse event Internal Medicine Objective - Results Result Diagrams: 01/22/18 15:00 01/22/18 15:00 Recent Labs: Laboratory Last Values WBC 9.6 Th/cmm (4.8-10.8) 01/22/18 15:00 RBC 4.51 Mil/cmm (3.80-5.80) 01/22/18 15:00 Hgb 13.4 gm/dL (12-16) 01/22/18 15:00 Hct 41.1 % (41.0-60) 01/22/18 15:00 MCV 91.1 fl (80-99) 01/22/18 15:00 MCH 29.6 pg (27.0-31.0) 01/22/18 15:00 MCHC Differential 32.5 pg (28.0-36.0) 01/22/18 15:00 RDW 16.6 % (11.5-20.0) 01/22/18 15:00 Plt Count 270 Th/cmm (150-400) 01/22/18 15:00 MPV 8.7 fl 01/22/18 15:00 Neutrophils % 57.9 % (40.0-80.0) 01/22/18 15:00 Lymphocytes % 28.2 % (20.0-50.0) 01/22/18 15:00 Monocytes % 10.1 % (2.0-10.0) H 01/22/18 15:00 Eosinophils % 1.6 % (0.0-5.0) 01/22/18 15:00 Basophils % 2.2 % (0.0-2.0) H 01/22/18 15:00 Sodium 137 mEq/L (136-145) 01/22/18 15:00 Potassium 4.1 mEq/L (3.5-5.1) 01/22/18 15:00 Chloride 101 mEq/L (98-107) 01/22/18 15:00 Carbon Dioxide 24.3 mEq/L (21.0-31.0) 01/22/18 15:00 Anion Gap 15.8 (7.0-16.0) 01/22/18 15:00 BUN 19 mg/dL (7-25) 01/22/18 15:00 Creatinine 1.6 mg/dL (0.7-1.3) H 01/22/18 15:00 Est GFR ( Amer) TNP 01/22/18 15:00 Est GFR (Non-Af Amer) TNP 01/22/18 15:00 BUN/Creatinine Ratio 11.9 01/22/18 15:00 Glucose 308 mg/dL (70-105) H 01/22/18 15:00 POC Glucose 296 MG/DL (70 - 105) H 01/29/18 20:45 Hemoglobin A1c % 8.4 % (4.0-6.0) H 01/22/18 15:00 Calcium 10.1 mg/dL (8.6-10.3) 01/22/18 15:00 Total Bilirubin 1.1 mg/dL (0.3-1.0) H 01/22/18 15:00 AST 15 U/L (13-39) 01/22/18 15:00 ALT 21 U/L (7-52) 01/22/18 15:00 Alkaline Phosphatase 88 U/L (34-104) 01/22/18 15:00 Total Protein 7.8 gm/dL (6.0-8.3) 01/22/18 15:00 Albumin 4.6 gm/dL (4.2-5.5) 01/22/18 15:00 Globulin 3.2 gm/dL 01/22/18 15:00 Albumin/Globulin Ratio 1.4 (1.0-1.8) 01/22/18 15:00 - Physical Exam Vitals and I&O: Vital Signs Temp 98.6 F 01/29/18 20:00 Pulse 79 01/29/18 20:00 Resp 20 01/29/18 20:00 BP 137/73 01/29/18 20:00 Pulse Ox 96 01/29/18 20:00 Intake & Output 01/29/18 01/29/18 01/30/18 06:59 18:59 06:59 Intake Total 480 Balance 480 Intake: Oral 480 Other: # Voids 2 Active Medications: Current Medications Acetaminophen (Tylenol) 650 mg PO Q4HR PRN PRN Reason: Mild Pain / Temp above 100 Stop: 03/23/18 14:16 Last Admin: 01/26/18 14:51 Dose: 650 mg Al Hydrox/Mg Hydrox/Simethicone (Maalox) 30 ml PO Q4HR PRN PRN Reason: GI DISTRESS Stop: 03/23/18 14:16 Atorvastatin Calcium (Lipitor) 40 mg PO DAILY [facility] Stop: 03/24/18 08:59 Last Admin: 01/29/18 08:22 Dose: 40 mg Duloxetine HCl (Cymbalta) 60 mg PO BID [facility] Stop: 03/25/18 16:59 Last Admin: 01/29/18 16:56 Dose: 60 mg Gabapentin (Neurontin) 300 mg PO TID [facility] Stop: 03/30/18 08:59 Last Admin: 01/29/18 21:10 Dose: 300 mg Insulin Aspart (Novolog Insulin Sliding Scale) 0 units SUBQ ACHS [facility]; Protocol Stop: 03/23/18 16:29 Last Admin: 01/29/18 20:49 Dose: 6 units Insulin Detemir (Levemir Insulin) 45 units SUBQ HS [facility] Stop: 03/24/18 20:59 Last Admin: 01/29/18 21:10 Dose: 45 units Insulin Detemir (Levemir Insulin) 20 units SUBQ DAILY [facility]; Protocol Stop: 03/30/18 08:59 Last Admin: 01/29/18 08:44 Dose: 20 unit Levothyroxine Sodium 0.112 mg/ (Levothyroxine Sodium 0.025 mg) 0.137 mg PO QDAC [facility] Stop: 03/24/18 07:29 Last Admin: 01/29/18 08:20 Dose: 0.137 mg Loperamide HCl (Imodium) 2 mg PO Q4HR PRN PRN Reason: Diarrhea Stop: 03/24/18 12:59 Lorazepam (Ativan) 0.5 mg PO Q4HR PRN; Protocol PRN Reason: Agitation Stop: 02/21/18 14:16 Last Admin: 01/28/18 21:11 Dose: 0.5 mg Magnesium Hydroxide (Milk Of Magnesia) 30 ml PO HS PRN PRN Reason: Constipation Methocarbamol (Robaxin) 750 mg PO BID [facility] Stop: 03/24/18 12:59 Last Admin: 01/29/18 16:58 Dose: 750 mg Mirtazapine (Remeron) 7.5 mg PO HS [facility]; Protocol Stop: 03/25/18 20:59 Last Admin: 01/29/18 21:49 Dose: 7.5 mg Multivitamins/Vitamin C (Theragran) 1 tab PO DAILY [facility] Stop: 03/24/18 08:59 Last Admin: 01/29/18 08:21 Dose: 1 tab Nifedipine (Procardia Xl) 90 mg PO DAILY [facility] Stop: 03/24/18 08:59 Last Admin: 01/29/18 08:29 Dose: 90 mg Ondansetron HCl (Zofran Odt) 4 mg PO Q6H PRN PRN Reason: Nausea / Vomiting Stop: 03/24/18 13:02 Pantoprazole Sodium (Protonix) 40 mg PO QDAC [facility] Stop: 03/24/18 07:29 Last Admin: 01/29/18 06:47 Dose: 40 mg Zolpidem Tartrate (Ambien) 5 mg PO HS PRN PRN Reason: Insomnia Stop: 03/23/18 14:16 Last Admin: 01/28/18 21:11 Dose: 5 mg General: alert HEENT: NC/AT, PERRLA, EOMI, anicteric sclerae, throat clear Neck: Supple, No JVD, No thyromegaly, No LAD, + JVD Lungs: CTAB Cardiovascular: RRR, Normal S1, Normal S2, without murmur Abdomen: soft, non-tender, non-distended Extremities: clear Neurological: no change Internal Medicine Assmt/Plan - Assessment Assessment: 1.DM. 2.HTN 3.HYPERLIPIDEMIA. 4.DEMEDTIA. 5.PSYCHOSIS - Plan Plan: CONTINUE ON CURRENT MEDICATION AND DIET. Nutritional Asmnt/Malnutr-PDOC - Dietary Evaluation Malnutrition Findings (Please click <Entered> for more info): Nutritional Asmnt/Malnutrition Start: 01/24/18 16: 13 Text: Status: Complete Freq: Protocol: Document 01/24/18 16:13 LCHENG (Rec: 01/24/18 16:25 LCHENG [email or web address]) Nutritional Asmnt/Malnutrition Patient General Information Nutritional Screening High Risk Diagnosis psychosis Pertinent Medical Hx/Surgical Hx DM on insulin, HTn, hyperlipidemia, dementia, psychosis Subjective Information Pt seen sitting up on bed at time of visit, awake and alert . Pt stated he consumed 50% of breakfast this morning. Explained current diet, pt showed understanding. BS 308 at admission noted. Current Diet Order/ Nutrition Support [facility] Pertinent Medications novolog, levemir, levothyroxine, remeron, theragran, protonix Pertinent Labs 01/22 Cr 1.6, glucose 308, A1c 8.4 Nutritional Hx/Data Height 1.91 m Height (Calculated Centimeters) 190.5 Current Weight (lbs) 104.326 kg Weight (Calculated Kilograms) 104.3 Weight (Calculated Grams) 948981.2 [place] Body Weight 196 % [place] Body Weight 117 Body Mass Index (BMI) 28.7 Weight Status Overweight GI Symptoms GI Symptoms None Last BM not indicated Difficult in: None Skin Integrity/Comment: intact Current %PO Fair (50-74%) Estimated Nutritional Goals Calories/Kcals/Kg 25-30 based on IBW 89 Kcals Calculated 8539-4972 Protein g/k.2 Protein Calculated 89-107 Fluid: ml 2225-2670ml (1ml/kcal) Nutritional Problem 1. Problem Problem altered nutrition related lab values Etiology hx of DM Signs/Symptoms: glucose 308, A1c 8.4 Malnutrition Alert Is there a minimum of two criteria No selected? Query Text:Check all the applicable criteria. A minimum of two criteria are recommended for diagnosis of either severe or non-severe malnutrition. Malnutrition Related to Morbid Obesity Malnutrition related to morbid obesity No Intervention/Recommendation Comments 1. Continue with [facility] diet as ordered. 2. Monitor PO intake, wt, labs and skin integrity 3. F/U as moderate risk in 3-5 days, 01/27-01/29 Expected Outcomes/Goals Expected Outcomes/Goals 1. PO intake to meet at least 75% of nutritional needs. 2. Wt stability, skin to remain intact, labs to approach WNL.
[2018-01-30] MEDS: INSULIN ASPART SLIDING SCALE 100 UNITS/ML UNIT SUBQ SCH ×4 (06:41→20:58)
[2018-01-30] MEDS: Pantoprazole 40 mg EC Tab PO SCH (06:44)
[2018-01-30] MEDS: NIFEdipine 30 mg ER Tab PO SCH (08:49)
[2018-01-30] MEDS: Multivitamin Tab PO SCH (08:50)
[2018-01-30] MEDS: Insulin Detemir 100 units/mL 10mL Vial SUBQ SCH ×2 (10:03→20:59)
--- NOTE | 2018-01-30 18:39 | Internal Medicine Prog Note ---
Internal Medicine Subjective - Subjective Service Date: 01/30/18 Patient seen and examined:: with staff Patient is:: awake, verbal, in bed, talking Per staff patient has:: no adverse event Internal Medicine Objective - Results Result Diagrams: 01/22/18 15:00 01/22/18 15:00 Recent Labs: Laboratory Last Values WBC 9.6 Th/cmm (4.8-10.8) 01/22/18 15:00 RBC 4.51 Mil/cmm (3.80-5.80) 01/22/18 15:00 Hgb 13.4 gm/dL (12-16) 01/22/18 15:00 Hct 41.1 % (41.0-60) 01/22/18 15:00 MCV 91.1 fl (80-99) 01/22/18 15:00 MCH 29.6 pg (27.0-31.0) 01/22/18 15:00 MCHC Differential 32.5 pg (28.0-36.0) 01/22/18 15:00 RDW 16.6 % (11.5-20.0) 01/22/18 15:00 Plt Count 270 Th/cmm (150-400) 01/22/18 15:00 MPV 8.7 fl 01/22/18 15:00 Neutrophils % 57.9 % (40.0-80.0) 01/22/18 15:00 Lymphocytes % 28.2 % (20.0-50.0) 01/22/18 15:00 Monocytes % 10.1 % (2.0-10.0) H 01/22/18 15:00 Eosinophils % 1.6 % (0.0-5.0) 01/22/18 15:00 Basophils % 2.2 % (0.0-2.0) H 01/22/18 15:00 Sodium 137 mEq/L (136-145) 01/22/18 15:00 Potassium 4.1 mEq/L (3.5-5.1) 01/22/18 15:00 Chloride 101 mEq/L (98-107) 01/22/18 15:00 Carbon Dioxide 24.3 mEq/L (21.0-31.0) 01/22/18 15:00 Anion Gap 15.8 (7.0-16.0) 01/22/18 15:00 BUN 19 mg/dL (7-25) 01/22/18 15:00 Creatinine 1.6 mg/dL (0.7-1.3) H 01/22/18 15:00 Est GFR ( Amer) TNP 01/22/18 15:00 Est GFR (Non-Af Amer) TNP 01/22/18 15:00 BUN/Creatinine Ratio 11.9 01/22/18 15:00 Glucose 308 mg/dL (70-105) H 01/22/18 15:00 POC Glucose 282 MG/DL (70 - 105) H 01/30/18 14:02 Hemoglobin A1c % 8.4 % (4.0-6.0) H 01/22/18 15:00 Calcium 10.1 mg/dL (8.6-10.3) 01/22/18 15:00 Total Bilirubin 1.1 mg/dL (0.3-1.0) H 01/22/18 15:00 AST 15 U/L (13-39) 01/22/18 15:00 ALT 21 U/L (7-52) 01/22/18 15:00 Alkaline Phosphatase 88 U/L (34-104) 01/22/18 15:00 Total Protein 7.8 gm/dL (6.0-8.3) 01/22/18 15:00 Albumin 4.6 gm/dL (4.2-5.5) 01/22/18 15:00 Globulin 3.2 gm/dL 01/22/18 15:00 Albumin/Globulin Ratio 1.4 (1.0-1.8) 01/22/18 15:00 - Physical Exam Vitals and I&O: Vital Signs Temp 98.6 F 01/30/18 14:00 Pulse 86 01/30/18 15:58 Resp 20 01/30/18 14:00 BP 130/75 01/30/18 15:58 Pulse Ox 96 01/30/18 14:00 Intake & Output 01/29/18 01/30/18 01/30/18 18:59 06:59 18:59 Intake Total 360 1300 Balance 360 1300 Intake: Oral 360 1300 Other: # Voids 2 3 Active Medications: Current Medications Acetaminophen (Tylenol) 650 mg PO Q4HR PRN PRN Reason: Mild Pain / Temp above 100 Stop: 03/23/18 14:16 Last Admin: 01/26/18 14:51 Dose: 650 mg Al Hydrox/Mg Hydrox/Simethicone (Maalox) 30 ml PO Q4HR PRN PRN Reason: GI DISTRESS Stop: 03/23/18 14:16 Atorvastatin Calcium (Lipitor) 40 mg PO DAILY [facility] Stop: 03/24/18 08:59 Last Admin: 01/30/18 08:48 Dose: 40 mg Duloxetine HCl (Cymbalta) 60 mg PO BID [facility] Stop: 03/25/18 16:59 Last Admin: 01/30/18 16:55 Dose: 60 mg Gabapentin (Neurontin) 400 mg PO TID [facility] Stop: 03/31/18 13:59 Last Admin: 01/30/18 14:59 Dose: 400 mg Insulin Aspart (Novolog Insulin Sliding Scale) 0 units SUBQ ACHS [facility]; Protocol Stop: 03/23/18 16:29 Last Admin: 01/30/18 17:25 Dose: 6 units Insulin Detemir (Levemir Insulin) 45 units SUBQ HS [facility] Stop: 03/24/18 20:59 Last Admin: 01/29/18 21:10 Dose: 45 units Insulin Detemir (Levemir Insulin) 20 units SUBQ DAILY [facility]; Protocol Stop: 03/30/18 08:59 Last Admin: 01/30/18 10:03 Dose: 20 unit Levothyroxine Sodium 0.112 mg/ (Levothyroxine Sodium 0.025 mg) 0.137 mg PO QDAC [facility] Stop: 03/24/18 07:29 Last Admin: 01/30/18 06:43 Dose: 0.137 mg Loperamide HCl (Imodium) 2 mg PO Q4HR PRN PRN Reason: Diarrhea Stop: 03/24/18 12:59 Lorazepam (Ativan) 0.5 mg PO Q4HR PRN; Protocol PRN Reason: Agitation Stop: 02/21/18 14:16 Last Admin: 01/28/18 21:11 Dose: 0.5 mg Magnesium Hydroxide (Milk Of Magnesia) 30 ml PO HS PRN PRN Reason: Constipation Methocarbamol (Robaxin) 750 mg PO BID [facility] Stop: 03/24/18 12:59 Last Admin: 01/30/18 16:52 Dose: 750 mg Mirtazapine (Remeron) 7.5 mg PO HS [facility]; Protocol Stop: 03/25/18 20:59 Last Admin: 01/29/18 21:49 Dose: 7.5 mg Multivitamins/Vitamin C (Theragran) 1 tab PO DAILY [facility] Stop: 03/24/18 08:59 Last Admin: 01/30/18 08:50 Dose: 1 tab Nifedipine (Procardia Xl) 90 mg PO DAILY [facility] Stop: 03/24/18 08:59 Last Admin: 01/30/18 08:49 Dose: 90 mg Ondansetron HCl (Zofran Odt) 4 mg PO Q6H PRN PRN Reason: Nausea / Vomiting Stop: 03/24/18 13:02 Pantoprazole Sodium (Protonix) 40 mg PO QDAC [facility] Stop: 03/24/18 07:29 Last Admin: 01/30/18 06:44 Dose: 40 mg Zolpidem Tartrate (Ambien) 5 mg PO HS PRN PRN Reason: Insomnia Stop: 03/23/18 14:16 Last Admin: 01/29/18 23:21 Dose: 5 mg General: alert HEENT: NC/AT, PERRLA, EOMI, anicteric sclerae, throat clear Neck: Supple, No JVD, No thyromegaly, No LAD, + JVD Lungs: CTAB Cardiovascular: RRR, Normal S1, Normal S2, without murmur Abdomen: soft, non-tender, non-distended Extremities: clear Neurological: no change Internal Medicine Assmt/Plan - Assessment Assessment: 1.DM. 2.HTN 3.HYPERLIPIDEMIA. 4.DEMEDTIA. 5.PSYCHOSIS - Plan Plan: CONTINUE ON CURRENT MEDICATION AND DIET. Nutritional Asmnt/Malnutr-PDOC - Dietary Evaluation Malnutrition Findings (Please click <Entered> for more info): Nutritional Asmnt/Malnutrition Start: 01/24/18 16: 13 Text: Status: Complete Freq: Protocol: Document 01/24/18 16:13 LCHENG (Rec: 01/24/18 16:25 LCHENG [email or web address]) Nutritional Asmnt/Malnutrition Patient General Information Nutritional Screening High Risk Diagnosis psychosis Pertinent Medical Hx/Surgical Hx DM on insulin, HTn, hyperlipidemia, dementia, psychosis Subjective Information Pt seen sitting up on bed at time of visit, awake and alert . Pt stated he consumed 50% of breakfast this morning. Explained current diet, pt showed understanding. BS 308 at admission noted. Current Diet Order/ Nutrition Support [facility] Pertinent Medications novolog, levemir, levothyroxine, remeron, theragran, protonix Pertinent Labs 01/22 Cr 1.6, glucose 308, A1c 8.4 Nutritional Hx/Data Height 1.91 m Height (Calculated Centimeters) 190.5 Current Weight (lbs) 104.326 kg Weight (Calculated Kilograms) 104.3 Weight (Calculated Grams) 715997.2 Heber Body Weight 196 % Heber Body Weight 117 Body Mass Index (BMI) 28.7 Weight Status Overweight GI Symptoms GI Symptoms None Last BM not indicated Difficult in: None Skin Integrity/Comment: intact Current %PO Fair (50-74%) Estimated Nutritional Goals Calories/Kcals/Kg 25-30 based on IBW 89 Kcals Calculated 7264-8608 Protein g/k.2 Protein Calculated 89-107 Fluid: ml 2225-2670ml (1ml/kcal) Nutritional Problem 1. Problem Problem altered nutrition related lab values Etiology hx of DM Signs/Symptoms: glucose 308, A1c 8.4 Malnutrition Alert Is there a minimum of two criteria No selected? Query Text:Check all the applicable criteria. A minimum of two criteria are recommended for diagnosis of either severe or non-severe malnutrition. Malnutrition Related to Morbid Obesity Malnutrition related to morbid obesity No Intervention/Recommendation Comments 1. Continue with [facility] diet as ordered. 2. Monitor PO intake, wt, labs and skin integrity 3. F/U as moderate risk in 3-5 days, 01/27-01/29 Expected Outcomes/Goals Expected Outcomes/Goals 1. PO intake to meet at least 75% of nutritional needs. 2. Wt stability, skin to remain intact, labs to approach WNL.
--- NOTE | 2018-01-30 23:37 | Progress Notes ---
DATE: 01/30/2018 Case was discussed with staff of the patient, reviewed records. The patient reports that the pain is a little bit better. He does not have the sharp pain that he used to have, but he is still in pain. He is sleeping better, eating better. He is no longer exhibiting detox symptoms; however, he is still in a lot of pain and that makes him depressed. He is denying any current intent to harm himself or anybody. He denies any side effects with the medication, no sedation, no nausea and I will be increasing the Neurontin to 400 mg 3 times a day and so far we will continue outpatient group therapy, milieu therapy, and adjust medications as needed. JOB# [id number]
[2018-01-31] MEDS: Pantoprazole 40 mg EC Tab PO SCH (06:36)
[2018-01-31] MEDS: INSULIN ASPART SLIDING SCALE 100 UNITS/ML UNIT SUBQ SCH ×4 (06:40→21:43)
[2018-01-31] MEDS: Insulin Detemir 100 units/mL 10mL Vial SUBQ SCH ×2 (08:58→21:44)
[2018-01-31] MEDS: NIFEdipine 30 mg ER Tab PO SCH (09:12)
[2018-01-31] MEDS: Multivitamin Tab PO SCH (09:13)
--- NOTE | 2018-01-31 11:40 | Progress Notes ---
DATE: 01/31/2018 Case was discussed with staff of the patient, reviewed records. The patient continues to complain of pain. Continues to be at times irritable, agitated, but in general, he is much better compared to how he was when he first came in here. He is sleeping better, though he said he has a lot of pain and not recommend to have a sound sleep. He is compliant with the medication with no side effects, no sedation, no nausea and he seems to be progressively getting better. No side effects with the medication, no sedation or nausea. We will continue the patient with group therapy and milieu therapy and adjust the medications as needed. JOB# [id number]
--- NOTE | 2018-01-31 18:45 | Internal Medicine Prog Note ---
Internal Medicine Subjective - Subjective Service Date: 01/31/18 Patient seen and examined:: with staff Patient is:: awake, verbal, in bed, talking Per staff patient has:: no adverse event Internal Medicine Objective - Results Result Diagrams: 01/22/18 15:00 01/22/18 15:00 Recent Labs: Laboratory Last Values WBC 9.6 Th/cmm (4.8-10.8) 01/22/18 15:00 RBC 4.51 Mil/cmm (3.80-5.80) 01/22/18 15:00 Hgb 13.4 gm/dL (12-16) 01/22/18 15:00 Hct 41.1 % (41.0-60) 01/22/18 15:00 MCV 91.1 fl (80-99) 01/22/18 15:00 MCH 29.6 pg (27.0-31.0) 01/22/18 15:00 MCHC Differential 32.5 pg (28.0-36.0) 01/22/18 15:00 RDW 16.6 % (11.5-20.0) 01/22/18 15:00 Plt Count 270 Th/cmm (150-400) 01/22/18 15:00 MPV 8.7 fl 01/22/18 15:00 Neutrophils % 57.9 % (40.0-80.0) 01/22/18 15:00 Lymphocytes % 28.2 % (20.0-50.0) 01/22/18 15:00 Monocytes % 10.1 % (2.0-10.0) H 01/22/18 15:00 Eosinophils % 1.6 % (0.0-5.0) 01/22/18 15:00 Basophils % 2.2 % (0.0-2.0) H 01/22/18 15:00 Sodium 137 mEq/L (136-145) 01/22/18 15:00 Potassium 4.1 mEq/L (3.5-5.1) 01/22/18 15:00 Chloride 101 mEq/L (98-107) 01/22/18 15:00 Carbon Dioxide 24.3 mEq/L (21.0-31.0) 01/22/18 15:00 Anion Gap 15.8 (7.0-16.0) 01/22/18 15:00 BUN 19 mg/dL (7-25) 01/22/18 15:00 Creatinine 1.6 mg/dL (0.7-1.3) H 01/22/18 15:00 Est GFR ( Amer) TNP 01/22/18 15:00 Est GFR (Non-Af Amer) TNP 01/22/18 15:00 BUN/Creatinine Ratio 11.9 01/22/18 15:00 Glucose 308 mg/dL (70-105) H 01/22/18 15:00 POC Glucose 194 MG/DL (70 - 105) H 01/31/18 16:35 Hemoglobin A1c % 8.4 % (4.0-6.0) H 01/22/18 15:00 Calcium 10.1 mg/dL (8.6-10.3) 01/22/18 15:00 Total Bilirubin 1.1 mg/dL (0.3-1.0) H 01/22/18 15:00 AST 15 U/L (13-39) 01/22/18 15:00 ALT 21 U/L (7-52) 01/22/18 15:00 Alkaline Phosphatase 88 U/L (34-104) 01/22/18 15:00 Total Protein 7.8 gm/dL (6.0-8.3) 01/22/18 15:00 Albumin 4.6 gm/dL (4.2-5.5) 01/22/18 15:00 Globulin 3.2 gm/dL 01/22/18 15:00 Albumin/Globulin Ratio 1.4 (1.0-1.8) 01/22/18 15:00 - Physical Exam Vitals and I&O: Vital Signs Temp 97.6 F 01/31/18 14:00 Pulse 94 01/31/18 14:00 Resp 18 01/31/18 14:00 BP 143/66 01/31/18 14:00 Pulse Ox 95 01/31/18 14:00 Intake & Output 01/30/18 01/31/18 01/31/18 18:59 06:59 18:59 Intake Total 1227 809 6039 Output Total 3 Balance 7792 899 5526 Intake: Oral 5008 033 4692 Output: Urine 3 Other: # Voids 3 1 # Bowel Movements 1 Active Medications: Current Medications Acetaminophen (Tylenol) 650 mg PO Q4HR PRN PRN Reason: Mild Pain / Temp above 100 Stop: 03/23/18 14:16 Last Admin: 01/26/18 14:51 Dose: 650 mg Al Hydrox/Mg Hydrox/Simethicone (Maalox) 30 ml PO Q4HR PRN PRN Reason: GI DISTRESS Stop: 03/23/18 14:16 Atorvastatin Calcium (Lipitor) 40 mg PO DAILY [facility] Stop: 03/24/18 08:59 Last Admin: 01/31/18 08:59 Dose: 40 mg Duloxetine HCl (Cymbalta) 60 mg PO BID [facility] Stop: 03/25/18 16:59 Last Admin: 01/31/18 16:44 Dose: 60 mg Gabapentin (Neurontin) 400 mg PO TID [facility] Stop: 03/31/18 13:59 Last Admin: 01/31/18 13:56 Dose: 400 mg Insulin Aspart (Novolog Insulin Sliding Scale) 0 units SUBQ ACHS [facility]; Protocol Stop: 03/23/18 16:29 Last Admin: 01/31/18 17:15 Dose: 2 units Insulin Detemir (Levemir Insulin) 45 units SUBQ HS [facility] Stop: 03/24/18 20:59 Last Admin: 01/30/18 20:59 Dose: 45 units Insulin Detemir (Levemir Insulin) 20 units SUBQ DAILY [facility]; Protocol Stop: 03/30/18 08:59 Last Admin: 01/31/18 08:58 Dose: 20 unit Levothyroxine Sodium 0.112 mg/ (Levothyroxine Sodium 0.025 mg) 0.137 mg PO QDAC [facility] Stop: 03/24/18 07:29 Last Admin: 01/31/18 06:36 Dose: 0.137 mg Loperamide HCl (Imodium) 2 mg PO Q4HR PRN PRN Reason: Diarrhea Stop: 03/24/18 12:59 Lorazepam (Ativan) 0.5 mg PO Q4HR PRN; Protocol PRN Reason: Agitation Stop: 02/21/18 14:16 Last Admin: 01/28/18 21:11 Dose: 0.5 mg Magnesium Hydroxide (Milk Of Magnesia) 30 ml PO HS PRN PRN Reason: Constipation Methocarbamol (Robaxin) 750 mg PO BID [facility] Stop: 03/24/18 12:59 Last Admin: 01/31/18 16:45 Dose: 750 mg Mirtazapine (Remeron) 7.5 mg PO HS [facility]; Protocol Stop: 03/25/18 20:59 Last Admin: 01/30/18 20:56 Dose: 7.5 mg Multivitamins/Vitamin C (Theragran) 1 tab PO DAILY [facility] Stop: 03/24/18 08:59 Last Admin: 01/31/18 09:13 Dose: 1 tab Nifedipine (Procardia Xl) 90 mg PO DAILY [facility] Stop: 03/24/18 08:59 Last Admin: 01/31/18 09:12 Dose: 90 mg Ondansetron HCl (Zofran Odt) 4 mg PO Q6H PRN PRN Reason: Nausea / Vomiting Stop: 03/24/18 13:02 Pantoprazole Sodium (Protonix) 40 mg PO QDAC [facility] Stop: 03/24/18 07:29 Last Admin: 01/31/18 06:36 Dose: 40 mg Zolpidem Tartrate (Ambien) 5 mg PO HS PRN PRN Reason: Insomnia Stop: 03/23/18 14:16 Last Admin: 01/30/18 22:18 Dose: 5 mg General: alert HEENT: NC/AT, PERRLA, EOMI, anicteric sclerae, throat clear Neck: Supple, No JVD, No thyromegaly, No LAD, + JVD Lungs: CTAB Cardiovascular: RRR, Normal S1, Normal S2, without murmur Abdomen: soft, non-tender, non-distended Extremities: clear Neurological: no change Internal Medicine Assmt/Plan - Assessment Assessment: 1.DM. 2.HTN 3.HYPERLIPIDEMIA. 4.DEMEDTIA. 5.PSYCHOSIS - Plan Plan: CONTINUE ON CURRENT MEDICATION AND DIET. Nutritional Asmnt/Malnutr-PDOC - Dietary Evaluation Malnutrition Findings (Please click <Entered> for more info): Nutritional Asmnt/Malnutrition Start: 01/24/18 16: 13 Text: Status: Complete Freq: Protocol: Document 01/24/18 16:13 LCHENG (Rec: 01/24/18 16:25 LCHENG [email or web address]) Nutritional Asmnt/Malnutrition Patient General Information Nutritional Screening High Risk Diagnosis psychosis Pertinent Medical Hx/Surgical Hx DM on insulin, HTn, hyperlipidemia, dementia, psychosis Subjective Information Pt seen sitting up on bed at time of visit, awake and alert . Pt stated he consumed 50% of breakfast this morning. Explained current diet, pt showed understanding. BS 308 at admission noted. Current Diet Order/ Nutrition Support [facility], [facility] Pertinent Medications novolog, levemir, levothyroxine, remeron, theragran, protonix Pertinent Labs 01/22 Cr 1.6, glucose 308, A1c 8.4 Nutritional Hx/Data Height 1.91 m Height (Calculated Centimeters) 190.5 Current Weight (lbs) 104.326 kg Weight (Calculated Kilograms) 104.3 Weight (Calculated Grams) 117810.2 [place] Body Weight 196 % [place] Body Weight 117 Body Mass Index (BMI) 28.7 Weight Status Overweight GI Symptoms GI Symptoms None Last BM not indicated Difficult in: None Skin Integrity/Comment: intact Current %PO Fair (50-74%) Estimated Nutritional Goals Calories/Kcals/Kg 25-30 based on IBW 89 Kcals Calculated 7758-4169 Protein g/k.2 Protein Calculated 89-107 Fluid: ml 2225-2670ml (1ml/kcal) Nutritional Problem 1. Problem Problem altered nutrition related lab values Etiology hx of DM Signs/Symptoms: glucose 308, A1c 8.4 Malnutrition Alert Is there a minimum of two criteria No selected? Query Text:Check all the applicable criteria. A minimum of two criteria are recommended for diagnosis of either severe or non-severe malnutrition. Malnutrition Related to Morbid Obesity Malnutrition related to morbid obesity No Intervention/Recommendation Comments 1. Continue with [facility] diet as ordered. 2. Monitor PO intake, wt, labs and skin integrity 3. F/U as moderate risk in 3-5 days, 01/27-01/29 Expected Outcomes/Goals Expected Outcomes/Goals 1. PO intake to meet at least 75% of nutritional needs. 2. Wt stability, skin to remain intact, labs to approach WNL.
[2018-02-01] MEDS: Pantoprazole 40 mg EC Tab PO SCH (07:08)
[2018-02-01] MEDS: INSULIN ASPART SLIDING SCALE 100 UNITS/ML UNIT SUBQ SCH ×4 (07:08→21:59)
[2018-02-01] MEDS: NIFEdipine 30 mg ER Tab PO SCH (09:15)
[2018-02-01] MEDS: Multivitamin Tab PO SCH (09:16)
[2018-02-01] MEDS: Insulin Detemir 100 units/mL 10mL Vial SUBQ SCH ×2 (09:30→22:01)
--- NOTE | 2018-02-01 15:24 | Internal Medicine Prog Note ---
Internal Medicine Subjective - Subjective Service Date: 02/01/18 Patient seen and examined:: with staff (he feels better.) Patient is:: awake, verbal, in bed, talking Per staff patient has:: no adverse event Internal Medicine Objective - Results Result Diagrams: 01/22/18 15:00 01/22/18 15:00 Recent Labs: Laboratory Last Values WBC 9.6 Th/cmm (4.8-10.8) 01/22/18 15:00 RBC 4.51 Mil/cmm (3.80-5.80) 01/22/18 15:00 Hgb 13.4 gm/dL (12-16) 01/22/18 15:00 Hct 41.1 % (41.0-60) 01/22/18 15:00 MCV 91.1 fl (80-99) 01/22/18 15:00 MCH 29.6 pg (27.0-31.0) 01/22/18 15:00 MCHC Differential 32.5 pg (28.0-36.0) 01/22/18 15:00 RDW 16.6 % (11.5-20.0) 01/22/18 15:00 Plt Count 270 Th/cmm (150-400) 01/22/18 15:00 MPV 8.7 fl 01/22/18 15:00 Neutrophils % 57.9 % (40.0-80.0) 01/22/18 15:00 Lymphocytes % 28.2 % (20.0-50.0) 01/22/18 15:00 Monocytes % 10.1 % (2.0-10.0) H 01/22/18 15:00 Eosinophils % 1.6 % (0.0-5.0) 01/22/18 15:00 Basophils % 2.2 % (0.0-2.0) H 01/22/18 15:00 Sodium 137 mEq/L (136-145) 01/22/18 15:00 Potassium 4.1 mEq/L (3.5-5.1) 01/22/18 15:00 Chloride 101 mEq/L (98-107) 01/22/18 15:00 Carbon Dioxide 24.3 mEq/L (21.0-31.0) 01/22/18 15:00 Anion Gap 15.8 (7.0-16.0) 01/22/18 15:00 BUN 19 mg/dL (7-25) 01/22/18 15:00 Creatinine 1.6 mg/dL (0.7-1.3) H 01/22/18 15:00 Est GFR ( Amer) TNP 01/22/18 15:00 Est GFR (Non-Af Amer) TNP 01/22/18 15:00 BUN/Creatinine Ratio 11.9 01/22/18 15:00 Glucose 308 mg/dL (70-105) H 01/22/18 15:00 POC Glucose 239 MG/DL (70 - 105) H 02/01/18 11:45 Hemoglobin A1c % 8.4 % (4.0-6.0) H 01/22/18 15:00 Calcium 10.1 mg/dL (8.6-10.3) 01/22/18 15:00 Total Bilirubin 1.1 mg/dL (0.3-1.0) H 01/22/18 15:00 AST 15 U/L (13-39) 01/22/18 15:00 ALT 21 U/L (7-52) 01/22/18 15:00 Alkaline Phosphatase 88 U/L (34-104) 01/22/18 15:00 Total Protein 7.8 gm/dL (6.0-8.3) 01/22/18 15:00 Albumin 4.6 gm/dL (4.2-5.5) 01/22/18 15:00 Globulin 3.2 gm/dL 01/22/18 15:00 Albumin/Globulin Ratio 1.4 (1.0-1.8) 01/22/18 15:00 - Physical Exam Vitals and I&O: Vital Signs Temp 97.0 F 02/01/18 15:12 Pulse 92 02/01/18 15:12 Resp 18 02/01/18 15:12 BP 149/81 02/01/18 15:12 Pulse Ox 98 02/01/18 15:12 Intake & Output 01/31/18 02/01/18 02/01/18 18:59 06:59 18:59 Intake Total 1500 820 Output Total 3 Balance 1497 820 Intake: Oral 1500 820 Output: Urine 3 Other: # Voids 2 # Bowel Movements 1 Active Medications: Current Medications Acetaminophen (Tylenol) 650 mg PO Q4HR PRN PRN Reason: Mild Pain / Temp above 100 Stop: 03/23/18 14:16 Last Admin: 01/26/18 14:51 Dose: 650 mg Al Hydrox/Mg Hydrox/Simethicone (Maalox) 30 ml PO Q4HR PRN PRN Reason: GI DISTRESS Stop: 03/23/18 14:16 Atorvastatin Calcium (Lipitor) 40 mg PO DAILY [facility] Stop: 03/24/18 08:59 Last Admin: 02/01/18 09:16 Dose: 40 mg Duloxetine HCl (Cymbalta) 60 mg PO BID [facility] Stop: 03/25/18 16:59 Last Admin: 02/01/18 09:16 Dose: 60 mg Gabapentin (Neurontin) 400 mg PO TID [facility] Stop: 03/31/18 13:59 Last Admin: 02/01/18 14:56 Dose: 400 mg Insulin Aspart (Novolog Insulin Sliding Scale) 0 units SUBQ ACHS [facility]; Protocol Stop: 03/23/18 16:29 Last Admin: 02/01/18 12:08 Dose: 4 units Insulin Detemir (Levemir Insulin) 45 units SUBQ HS [facility] Stop: 03/24/18 20:59 Last Admin: 01/31/18 21:44 Dose: 45 units Insulin Detemir (Levemir Insulin) 20 units SUBQ DAILY [facility]; Protocol Stop: 03/30/18 08:59 Last Admin: 02/01/18 09:30 Dose: 20 unit Levothyroxine Sodium 0.112 mg/ (Levothyroxine Sodium 0.025 mg) 0.137 mg PO QDAC [facility] Stop: 03/24/18 07:29 Last Admin: 02/01/18 07:08 Dose: 0.137 mg Loperamide HCl (Imodium) 2 mg PO Q4HR PRN PRN Reason: Diarrhea Stop: 03/24/18 12:59 Lorazepam (Ativan) 0.5 mg PO Q4HR PRN; Protocol PRN Reason: Agitation Stop: 02/21/18 14:16 Last Admin: 01/28/18 21:11 Dose: 0.5 mg Magnesium Hydroxide (Milk Of Magnesia) 30 ml PO HS PRN PRN Reason: Constipation Methocarbamol (Robaxin) 750 mg PO BID [facility] Stop: 03/24/18 12:59 Last Admin: 02/01/18 09:14 Dose: 750 mg Mirtazapine (Remeron) 7.5 mg PO HS [facility]; Protocol Stop: 03/25/18 20:59 Last Admin: 01/31/18 21:45 Dose: 7.5 mg Multivitamins/Vitamin C (Theragran) 1 tab PO DAILY [facility] Stop: 03/24/18 08:59 Last Admin: 02/01/18 09:16 Dose: 1 tab Nifedipine (Procardia Xl) 90 mg PO DAILY [facility] Stop: 03/24/18 08:59 Last Admin: 02/01/18 09:15 Dose: 90 mg Ondansetron HCl (Zofran Odt) 4 mg PO Q6H PRN PRN Reason: Nausea / Vomiting Stop: 03/24/18 13:02 Pantoprazole Sodium (Protonix) 40 mg PO QDAC [facility] Stop: 03/24/18 07:29 Last Admin: 02/01/18 07:08 Dose: 40 mg Zolpidem Tartrate (Ambien) 5 mg PO HS PRN PRN Reason: Insomnia Stop: 03/23/18 14:16 Last Admin: 01/31/18 21:46 Dose: 5 mg General: alert HEENT: NC/AT, PERRLA, EOMI, anicteric sclerae, throat clear Neck: Supple, No JVD, No thyromegaly, No LAD, + JVD Lungs: CTAB Cardiovascular: RRR, Normal S1, Normal S2, without murmur Abdomen: soft, non-tender, non-distended Extremities: clear Neurological: no change Internal Medicine Assmt/Plan - Assessment Assessment: 1.DM. 2.HTN 3.HYPERLIPIDEMIA. 4.DEMEDTIA. 5.PSYCHOSIS - Plan Plan: CONTINUE ON CURRENT MEDICATION AND DIET. Nutritional Asmnt/Malnutr-PDOC - Dietary Evaluation Malnutrition Findings (Please click <Entered> for more info): Nutritional Asmnt/Malnutrition Start: 01/24/18 16: 13 Text: Status: Complete Freq: Protocol: Document 01/24/18 16:13 LCHENG (Rec: 01/24/18 16:25 LCHENG [email or web address]) Nutritional Asmnt/Malnutrition Patient General Information Nutritional Screening High Risk Diagnosis psychosis Pertinent Medical Hx/Surgical Hx DM on insulin, HTn, hyperlipidemia, dementia, psychosis Subjective Information Pt seen sitting up on bed at time of visit, awake and alert . Pt stated he consumed 50% of breakfast this morning. Explained current diet, pt showed understanding. BS 308 at admission noted. Current Diet Order/ Nutrition Support [facility], [facility] Pertinent Medications novolog, levemir, levothyroxine, remeron, theragran, protonix Pertinent Labs 01/22 Cr 1.6, glucose 308, A1c 8.4 Nutritional Hx/Data Height 1.91 m Height (Calculated Centimeters) 190.5 Current Weight (lbs) 104.326 kg Weight (Calculated Kilograms) 104.3 Weight (Calculated Grams) 912870.2 [place] Body Weight 196 % [place] Body Weight 117 Body Mass Index (BMI) 28.7 Weight Status Overweight GI Symptoms GI Symptoms None Last BM not indicated Difficult in: None Skin Integrity/Comment: intact Current %PO Fair (50-74%) Estimated Nutritional Goals Calories/Kcals/Kg 25-30 based on IBW 89 Kcals Calculated 8972-8820 Protein g/k.2 Protein Calculated 89-107 Fluid: ml 2225-2670ml (1ml/kcal) Nutritional Problem 1. Problem Problem altered nutrition related lab values Etiology hx of DM Signs/Symptoms: glucose 308, A1c 8.4 Malnutrition Alert Is there a minimum of two criteria No selected? Query Text:Check all the applicable criteria. A minimum of two criteria are recommended for diagnosis of either severe or non-severe malnutrition. Malnutrition Related to Morbid Obesity Malnutrition related to morbid obesity No Intervention/Recommendation Comments 1. Continue with [facility] diet as ordered. 2. Monitor PO intake, wt, labs and skin integrity 3. F/U as moderate risk in 3-5 days, 01/27-01/29 Expected Outcomes/Goals Expected Outcomes/Goals 1. PO intake to meet at least 75% of nutritional needs. 2. Wt stability, skin to remain intact, labs to approach WNL.
--- NOTE | 2018-02-01 19:37 | Progress Notes ---
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 The patient states he is in the hospital because of diabetes out of control. Dr. Isaacs seeing the patient over the past couple of days. Noted he remained irritable, somewhat agitated this morning, disoriented as to why he is in the hospital. The patient denying any current pain symptoms; noted to be calm, cooperative, slept fairly well. Noted to be interactive with peers. No agitation, no escalation of behaviors, some disorientation noted on my exam. ASSESSMENT: The patient remains symptomatic. Irritability, mild confusion. He is not quite sure why he is in the hospital at this time. PLAN: We will continue to monitor. Medications were reviewed. We will continue to monitor and follow up. JOB# [id number]
[2018-02-02] MEDS: INSULIN ASPART SLIDING SCALE 100 UNITS/ML UNIT SUBQ SCH ×3 (06:49→21:35)
[2018-02-02] MEDS: Pantoprazole 40 mg EC Tab PO SCH (06:50)
[2018-02-02] MEDS: Multivitamin Tab PO SCH (09:40)
[2018-02-02] MEDS: NIFEdipine 30 mg ER Tab PO SCH (09:40)
[2018-02-02] MEDS: Insulin Detemir 100 units/mL 10mL Vial SUBQ SCH ×2 (09:41→21:33)
--- NOTE | 2018-02-02 12:21 | Progress Notes ---
DATE: 02/02/2018 SUBJECTIVE: The patient in the hospital, transferred from [place], using codeine, having withdrawal symptoms in the past. The patient seems to be improving, calmer, and more cooperative. The patient has been irritable and agitated yesterday morning but seemingly calmer. Staff noting he has been without any behavioral disturbances over the past 24 hours, slept well, better oriented today, but he does have some bouts of confusion. No SI, no HI. Still believes he is here for diabetes. ASSESSMENT: The patient seems to be improving, calmer, certainly more cooperative. Staff noting no behavioral disturbances. PLAN: We will continue to monitor, adjust and titrate medications. Medications were reviewed. JOB# [id number]
--- NOTE | 2018-02-02 17:21 | Internal Medicine Prog Note ---
Internal Medicine Subjective - Subjective Service Date: 02/02/18 Patient seen and examined:: without staff (HE FEELS WELL) Patient is:: awake, verbal, in bed, talking Per staff patient has:: no adverse event Internal Medicine Objective - Results Result Diagrams: 01/22/18 15:00 01/22/18 15:00 Recent Labs: Laboratory Last Values WBC 9.6 Th/cmm (4.8-10.8) 01/22/18 15:00 RBC 4.51 Mil/cmm (3.80-5.80) 01/22/18 15:00 Hgb 13.4 gm/dL (12-16) 01/22/18 15:00 Hct 41.1 % (41.0-60) 01/22/18 15:00 MCV 91.1 fl (80-99) 01/22/18 15:00 MCH 29.6 pg (27.0-31.0) 01/22/18 15:00 MCHC Differential 32.5 pg (28.0-36.0) 01/22/18 15:00 RDW 16.6 % (11.5-20.0) 01/22/18 15:00 Plt Count 270 Th/cmm (150-400) 01/22/18 15:00 MPV 8.7 fl 01/22/18 15:00 Neutrophils % 57.9 % (40.0-80.0) 01/22/18 15:00 Lymphocytes % 28.2 % (20.0-50.0) 01/22/18 15:00 Monocytes % 10.1 % (2.0-10.0) H 01/22/18 15:00 Eosinophils % 1.6 % (0.0-5.0) 01/22/18 15:00 Basophils % 2.2 % (0.0-2.0) H 01/22/18 15:00 Sodium 137 mEq/L (136-145) 01/22/18 15:00 Potassium 4.1 mEq/L (3.5-5.1) 01/22/18 15:00 Chloride 101 mEq/L (98-107) 01/22/18 15:00 Carbon Dioxide 24.3 mEq/L (21.0-31.0) 01/22/18 15:00 Anion Gap 15.8 (7.0-16.0) 01/22/18 15:00 BUN 19 mg/dL (7-25) 01/22/18 15:00 Creatinine 1.6 mg/dL (0.7-1.3) H 01/22/18 15:00 Est GFR ( Amer) TNP 01/22/18 15:00 Est GFR (Non-Af Amer) TNP 01/22/18 15:00 BUN/Creatinine Ratio 11.9 01/22/18 15:00 Glucose 308 mg/dL (70-105) H 01/22/18 15:00 POC Glucose 242 MG/DL (70 - 105) H 02/01/18 17:07 Hemoglobin A1c % 8.4 % (4.0-6.0) H 01/22/18 15:00 Calcium 10.1 mg/dL (8.6-10.3) 01/22/18 15:00 Total Bilirubin 1.1 mg/dL (0.3-1.0) H 01/22/18 15:00 AST 15 U/L (13-39) 01/22/18 15:00 ALT 21 U/L (7-52) 01/22/18 15:00 Alkaline Phosphatase 88 U/L (34-104) 01/22/18 15:00 Total Protein 7.8 gm/dL (6.0-8.3) 01/22/18 15:00 Albumin 4.6 gm/dL (4.2-5.5) 01/22/18 15:00 Globulin 3.2 gm/dL 01/22/18 15:00 Albumin/Globulin Ratio 1.4 (1.0-1.8) 01/22/18 15:00 - Physical Exam Vitals and I&O: Vital Signs Temp 98.8 F 02/02/18 14:59 Pulse 82 02/02/18 14:59 Resp 82 02/02/18 14:59 BP 130/72 02/02/18 14:59 Pulse Ox 97 02/02/18 14:59 Intake & Output 02/01/18 02/02/18 02/02/18 18:59 06:59 18:59 Intake Total 1300 420 Balance 1300 420 Intake: Oral 1300 420 Other: # Voids 4 1 # Bowel Movements 2 Active Medications: Current Medications Acetaminophen (Tylenol) 650 mg PO Q4HR PRN PRN Reason: Mild Pain / Temp above 100 Stop: 03/23/18 14:16 Last Admin: 01/26/18 14:51 Dose: 650 mg Al Hydrox/Mg Hydrox/Simethicone (Maalox) 30 ml PO Q4HR PRN PRN Reason: GI DISTRESS Stop: 03/23/18 14:16 Atorvastatin Calcium (Lipitor) 40 mg PO DAILY [facility] Stop: 03/24/18 08:59 Last Admin: 02/02/18 09:39 Dose: 40 mg Duloxetine HCl (Cymbalta) 60 mg PO BID [facility] Stop: 03/25/18 16:59 Last Admin: 02/02/18 16:35 Dose: 60 mg Gabapentin (Neurontin) 400 mg PO TID [facility] Stop: 03/31/18 13:59 Last Admin: 02/02/18 15:02 Dose: Not Given Insulin Aspart (Novolog Insulin Sliding Scale) 0 units SUBQ ACHS [facility]; Protocol Stop: 03/23/18 16:29 Last Admin: 02/02/18 12:14 Dose: 4 units Insulin Detemir (Levemir Insulin) 45 units SUBQ HS [facility] Stop: 03/24/18 20:59 Last Admin: 02/01/18 22:01 Dose: 45 units Insulin Detemir (Levemir Insulin) 20 units SUBQ DAILY [facility]; Protocol Stop: 03/30/18 08:59 Last Admin: 02/02/18 09:41 Dose: 20 unit Levothyroxine Sodium 0.112 mg/ (Levothyroxine Sodium 0.025 mg) 0.137 mg PO QDAC [facility] Stop: 03/24/18 07:29 Last Admin: 02/02/18 06:49 Dose: 0.137 mg Loperamide HCl (Imodium) 2 mg PO Q4HR PRN PRN Reason: Diarrhea Stop: 03/24/18 12:59 Lorazepam (Ativan) 0.5 mg PO Q4HR PRN; Protocol PRN Reason: Agitation Stop: 02/21/18 14:16 Last Admin: 01/28/18 21:11 Dose: 0.5 mg Magnesium Hydroxide (Milk Of Magnesia) 30 ml PO HS PRN PRN Reason: Constipation Methocarbamol (Robaxin) 750 mg PO BID [facility] Stop: 03/24/18 12:59 Last Admin: 02/02/18 16:35 Dose: 750 mg Mirtazapine (Remeron) 7.5 mg PO HS [facility]; Protocol Stop: 03/25/18 20:59 Last Admin: 02/01/18 21:30 Dose: 7.5 mg Multivitamins/Vitamin C (Theragran) 1 tab PO DAILY [facility] Stop: 03/24/18 08:59 Last Admin: 02/02/18 09:40 Dose: 1 tab Nifedipine (Procardia Xl) 90 mg PO DAILY [facility] Stop: 03/24/18 08:59 Last Admin: 02/02/18 09:40 Dose: 90 mg Ondansetron HCl (Zofran Odt) 4 mg PO Q6H PRN PRN Reason: Nausea / Vomiting Stop: 03/24/18 13:02 Pantoprazole Sodium (Protonix) 40 mg PO QDAC [facility] Stop: 03/24/18 07:29 Last Admin: 02/02/18 06:50 Dose: 40 mg Zolpidem Tartrate (Ambien) 5 mg PO HS PRN PRN Reason: Insomnia Stop: 03/23/18 14:16 Last Admin: 02/01/18 21:33 Dose: 5 mg General: alert HEENT: NC/AT, PERRLA, EOMI, anicteric sclerae, throat clear Neck: Supple, No JVD, No thyromegaly, No LAD, + JVD Lungs: CTAB Cardiovascular: RRR, Normal S1, Normal S2, without murmur Abdomen: soft, non-tender, non-distended Extremities: clear Neurological: no change Internal Medicine Assmt/Plan - Assessment Assessment: 1.DM. 2.HTN 3.HYPERLIPIDEMIA. 4.DEMEDTIA. 5.PSYCHOSIS - Plan Plan: CONTINUE ON CURRENT MEDICATION AND DIET. Nutritional Asmnt/Malnutr-PDOC - Dietary Evaluation Malnutrition Findings (Please click <Entered> for more info): Nutritional Asmnt/Malnutrition Start: 01/24/18 16: 13 Text: Status: Complete Freq: Protocol: Document 01/24/18 16:13 LCHENG (Rec: 01/24/18 16:25 LCHENG [email or web address]) Nutritional Asmnt/Malnutrition Patient General Information Nutritional Screening High Risk Diagnosis psychosis Pertinent Medical Hx/Surgical Hx DM on insulin, HTn, hyperlipidemia, dementia, psychosis Subjective Information Pt seen sitting up on bed at time of visit, awake and alert . Pt stated he consumed 50% of breakfast this morning. Explained current diet, pt showed understanding. BS 308 at admission noted. Current Diet Order/ Nutrition Support [facility], [facility] Pertinent Medications novolog, levemir, levothyroxine, remeron, theragran, protonix Pertinent Labs 01/22 Cr 1.6, glucose 308, A1c 8.4 Nutritional Hx/Data Height 1.91 m Height (Calculated Centimeters) 190.5 Current Weight (lbs) 104.326 kg Weight (Calculated Kilograms) 104.3 Weight (Calculated Grams) 664735.2 [place] Body Weight 196 % [place] Body Weight 117 Body Mass Index (BMI) 28.7 Weight Status Overweight GI Symptoms GI Symptoms None Last BM not indicated Difficult in: None Skin Integrity/Comment: intact Current %PO Fair (50-74%) Estimated Nutritional Goals Calories/Kcals/Kg 25-30 based on IBW 89 Kcals Calculated 0480-4833 Protein g/k.2 Protein Calculated 89-107 Fluid: ml 2225-2670ml (1ml/kcal) Nutritional Problem 1. Problem Problem altered nutrition related lab values Etiology hx of DM Signs/Symptoms: glucose 308, A1c 8.4 Malnutrition Alert Is there a minimum of two criteria No selected? Query Text:Check all the applicable criteria. A minimum of two criteria are recommended for diagnosis of either severe or non-severe malnutrition. Malnutrition Related to Morbid Obesity Malnutrition related to morbid obesity No Intervention/Recommendation Comments 1. Continue with [facility] diet as ordered. 2. Monitor PO intake, wt, labs and skin integrity 3. F/U as moderate risk in 3-5 days, 01/27-01/29 Expected Outcomes/Goals Expected Outcomes/Goals 1. PO intake to meet at least 75% of nutritional needs. 2. Wt stability, skin to remain intact, labs to approach WNL.
[2018-02-03] MEDS: Pantoprazole 40 mg EC Tab PO SCH (07:10)
[2018-02-03] MEDS: INSULIN ASPART SLIDING SCALE 100 UNITS/ML UNIT SUBQ SCH (07:10)
[2018-02-03] MEDS: Multivitamin Tab PO SCH (09:33)
[2018-02-03] MEDS: NIFEdipine 30 mg ER Tab PO SCH (09:33)
[2018-02-03] MEDS: Insulin Detemir 100 units/mL 10mL Vial SUBQ SCH (09:40)
--- NOTE | 2018-02-03 16:07 | Discharge Summary ---
DATE OF DISCHARGE: 02/03/2018 IDENTIFYING INFORMATION: The patient is a 77-year-old male. HISTORY OF PRESENT ILLNESS: The patient was admitted because he was addicted to opiate then he was at another hospital and they sent him here to this facility to get detox. The patient has also seems like he has chronic pain. He had neuropathy and that he has been abusing pain medication. The patient felt very depressed and overwhelmed with his symptoms. The patient was on Cymbalta, I increase the dose to 60 mg twice a day and also he was on Neurontin that was increased by ____ increase the dose to 400 mg 3 times a day. He was kept on the rest of his medications. The patient progressively got better. He said even the mild pain that he had after the sharp knee pain discontinued and was gone. He was detoxed from the opiates using the protocol including methocarbamol and Robaxin as well as clonidine. As he improved, he was no longer detoxing. He said he did not take the opiate for last week or two before he came to our hospital, he was having to go ____ discharge and his was very much involved. I talked to her few times and very supportive. The patient will be going back with his . The patient was in very good mood, sleeping well, eating well, no longer depressed. No suicidal ideation, no homicidal ideation, no paranoia. So the patient was willing to continue as an outpatient. The patient was discharged to a lesser level of care. 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 Opiate dependence. MEDICAL DIAGNOSES: Deferred to the medical doctor. The patient will follow up with his psychiatrist, primary care physician, and a therapist and hopefully a CD program. EXPECTED OUTCOME: Stable if the patient complies with the above. JOB# [id number]
== END 2018-02-03 11:30 | disposition home or self-care (01) | DRG 885 ==
LOC: GERO2 12:59
PROVIDERS: ADMIT Psychiatry & Neurology Psychiatry; ATTEND Psychiatry & Neurology Psychiatry
DX: F33.2 Major depressive disorder, recurrent severe without psychotic features (principal); F11.20 Opioid dependence, uncomplicated; I10 Essential (primary) hypertension; F03.90 Unspecified dementia, unspecified severity, without behavioral disturbance, psychotic disturbance, mood disturbance, and anxiety; E11.40 Type 2 diabetes mellitus with diabetic neuropathy, unspecified; E78.5 Hyperlipidemia, unspecified; F29 Unspecified psychosis not due to a substance or known physiological condition; G89.29 Other chronic pain; Z79.4 Long term (current) use of insulin; Z88.5 Allergy status to narcotic agent; Z23 Encounter for immunization
CPT/HCPCS: 36415-UA; 71045-TC; 80053-TC; 82948-90; 83036-90; 85025-TC; 90732; 93005; G0410; J1815; Z7610